=== PATIENT | female | born 1995 | race Caucasian/White ===

== ENCOUNTER 2019-01-15 13:14 | Emergency (ER) | payer BC ==
--- NOTE | 2019-01-15 13:50 | ERPHSYRPT ---
- History of Present Illness Time Seen by Provider: 01/15/19 13:30 Source: patient Exam Limitations: other Physician History: PATIENT WITH A HISTORY OF TYPE 1 DIABETES SINCE AGE 13 DEVELOPED ACUTE ONSET OF WEAKNESS, DROWSINESS AT WORK, HAD ACCUCHECK OF 50'S. DENIES HEADACHE, BLURRED VISION, SLURRED SPEECH, FOCAL NUMBNESS, WEAKNESS TINGLING IN EXTREMITIES. Timing/Duration: today Severity: severe Modifying Factors: Improves With: other (HAD A LIGHT BREAKFEAST TODAY) Associated Symptoms: denies symptoms - Review of Systems Constitutional: No Fever, No Chills Eyes: No Symptoms Ears, Nose, & Throat: No Symptoms Respiratory: No Symptoms, No Cough, No Dyspnea Cardiac: No Symptoms, No Chest Pain, No Edema, No Syncope Abdominal/Gastrointestinal: No Symptoms, No Abdominal Pain, No Nausea, No Vomiting, No Diarrhea Genitourinary Symptoms: No Symptoms, No Dysuria Musculoskeletal: No Symptoms, No Back Pain, No Neck Pain Skin: No Rash Neurological: Other (WEAKNESS, LETHARGY), No Dizziness, No Focal Weakness, No Sensory Changes Psychological: No Symptoms Endocrine: No Symptoms All Other Systems: Reviewed and Negative - Nursing Vital Signs Nursing Vital Signs: Initial Vital Signs Temperature 98 F 01/15/19 13:14 Pulse Rate 108 H 01/15/19 13:14 Respiratory Rate 16 01/15/19 13:14 Blood Pressure 165/110 01/15/19 13:14 O2 Sat by Pulse Oximetry 99 01/15/19 13:14 Pain Scale Pain Intensity 0 - Physical Exam General Appearance: no apparent distress, alert, other (AMBULATES INTO EMERGENCY ROOM NOMAL GAIT) Eye Exam: PERRL/EOMI, eyes nml inspection Ears, Nose, Throat Exam: normal ENT inspection, TMs normal, pharynx normal, moist mucous membranes Neck Exam: normal inspection, non-tender, supple, full range of motion Respiratory Exam: normal breath sounds, lungs clear, No respiratory distress Cardiovascular Exam: regular rate/rhythm, normal heart sounds, normal peripheral pulses Gastrointestinal/Abdomen Exam: soft, normal bowel sounds, No tenderness, No mass Back Exam: normal inspection, normal range of motion, No CVA tenderness, No vertebral tenderness Extremity Exam: normal inspection, normal range of motion, pelvis stable Neurologic Exam: alert, oriented x 3, cooperative, normal mood/affect, nml cerebellar function, nml station & gait, sensation nml, No motor deficits Skin Exam: normal color, warm, dry, No rash Lymphatic Exam: No adenopathy SpO2 Interpretation: normal SpO2: 100 O2 Delivery: Room Air Ordered Tests: Active Orders 24 hr Category Date Time Status BMP Stat Lab 01/15/19 13:56 Completed CBC W DIFF Stat Lab 01/15/19 13:56 Completed MAGNESIUM Stat Lab 01/15/19 13:56 Completed UA W/RFX UR CULTURE Stat Lab 01/15/19 14:30 Completed Lab/Rad Data: Laboratory Result Diagrams 01/15/19 13:56 01/15/19 13:56 Laboratory Results 01/15/19 01/15/19 01/15/19 Range/Units 14:30 13:56 13:56 WBC 11.0 H (4.0-10.5) K/mm3 RBC 4.25 (4.1-5.4) M/mm3 Hgb 12.9 (12.0-16.0) gm/dl Hct 38.0 (35-47) % MCV 89.4 (78-100) fl MCH 30.4 (26-32) pg MCHC 33.9 (32-36) g/dl RDW 13.0 (11.5-14.0) % Plt Count 251 (150-450) K/mm3 MPV 10.0 H (6-9.5) fl Gran % 70.2 H (36.0-66.0) % Eos # (Auto) 0.05 (0-0.5) Absolute Lymphs (auto) 2.39 (1.0-4.6) Absolute Monos (auto) 0.81 (0.0-1.3) Lymphocytes % 21.8 L (24.0-44.0) % Monocytes % 7.4 (0.0-12.0) % Eosinophils % 0.5 (0.00-5.0) % Basophils % 0.1 (0.0-0.4) % Absolute Granulocytes 7.72 H (1.4-6.9) Basophils # 0.01 (0-0.4) Sodium 137 (137-145) mmol/L Potassium 4.3 (3.5-5.1) mmol/L Chloride 103 (98-107) mmol/L Carbon Dioxide 21 L (22-30) mmol/L Anion Gap 17.0 H (5-15) MEQ/L BUN 7 (7-17) mg/dL Creatinine 0.46 L (0.52-1.04) mg/dL Estimated GFR > 60.0 ML/MIN Glucose 110 H (74-106) mg/dL Calcium 9.3 (8.4-10.2) mg/dL Magnesium 1.6 (1.6-2.3) mg/dL Urine Color YELLOW (YELLOW) Urine Appearance SLIGHTLY CLOUDY (CLEAR) Urine pH 7.0 (5-6) Ur Specific [place] 1.015 (1.005-1.025) Urine Protein NEGATIVE (Negative) Urine Ketones NEGATIVE (NEGATIVE) Urine Blood NEGATIVE (0-5) Adbulaziz/ul Urine Nitrite NEGATIVE (NEGATIVE) Urine Bilirubin NEGATIVE (NEGATIVE) Urine Urobilinogen NEGATIVE (0-1) mg/dL Ur Leukocyte Esterase NEGATIVE (NEGATIVE) Urine WBC (Auto) 0-2 (0-5) /HPF Urine RBC (Auto) NONE (0-2) /HPF U Epithel Cells (Auto) RARE (FEW) /HPF Urine Bacteria (Auto) RARE (NEGATIVE) /HPF Urine Mucus (Auto) SLIGHT (NEGATIVE) /HPF Urine Culture Reflexed NO (NO) Urine Glucose 50 (NEGATIVE) mg/dL - Progress Progress Note: 01/15/19 13:52, ACCUCHECK -66 PATIENT GIVEN FOOD TRAY, REPEAT ACCUCHECK 172 01/15/19 15:07 Counseled pt/family regarding: lab results, diagnosis, need for follow-up - Departure Departure Disposition: Home Clinical Impression: HYPOGLYCEMIA Condition: Stable Critical Care Time: No Additional Instructions: CONSULT YOUR PRIMARY CARE PROVIDER AND CERTIFIED CONTROL SYSTEMS TECHNICIAN FOR FOLLOWUP, CALL TODAY TO SCHEDULE APPOINTMENT. OBTAIN ACCUCHECK BEFORE MEALS AND AT BEDTIME.
[2019-01-15 13:59] LABS: BASOPHIL % 0.1 % (0.0-0.4); Basophil (Absolute #) 0.01 (0-0.4); Eosinophil % 0.5 % (0.00-5.0); Eosinophil (Absolute #) 0.05 (0-0.5); Granulocyte Absolute (ANC) 7.72 (1.4-6.9); Granulocytes % 70.2 % (36.0-66.0); Hemoglobin 12.9 gm/dl (12.0-16.0); Lymphocyte (Absolute #) 2.39 (1.0-4.6); Lymphocytes % 21.8 % (24.0-44.0); Mean Cell Volume 89.4 fl (78-100); Mean Corpuscular Hemoglobin 30.4 pg (26-32); Mean Corpuscular Hgb Concent. 33.9 g/dl (32-36); Monocyte (Absolute #) 0.81 (0.0-1.3); Monocytes % 7.4 % (0.0-12.0); Platelet Count 251 K/mm3 (150-450); Red Blood Count 4.25 M/mm3 (4.1-5.4)
[2019-01-15 14:27] LABS: BLOOD UREA NITROGEN 7 mg/dL (7-17); CHLORIDE 103 mmol/L (98-107); Calcium 9.3 mg/dL (8.4-10.2); Carbon Dioxide 21 mmol/L (22-30); Creatinine 1 0.46 mg/dL (0.52-1.04); Glucose 110 mg/dL (74-106); MAGNESIUM 1.6 mg/dL (1.6-2.3); Potassium 4.3 mmol/L (3.5-5.1); SODIUM 137 mmol/L (137-145)
[2019-01-15 14:31] LABS: Appearance SLIGHTLY CLOUDY (CLEAR); Bacteria RARE /HPF (NEGATIVE); Bilirubin NEGATIVE (NEGATIVE); Blood NEGATIVE Ery/ul (0-5); Epithelial Cells RARE /HPF (FEW); Glucose 50 mg/dL (NEGATIVE); Ketones NEGATIVE (NEGATIVE); Leukocyte Esterase NEGATIVE (NEGATIVE); Mucus SLIGHT /HPF (NEGATIVE); Nitrite NEGATIVE (NEGATIVE); Protein,Urine Dip NEGATIVE (Negative); Specific Gravity 1.015 (1.005-1.025); Urobilinogen NEGATIVE mg/dL (0-1); WBC 0-2 /HPF (0-5)
[2019-01-15 15:27] VITALS: BP 144/93; PULSE 103; O2SAT 96
== END 2019-01-15 15:29 | disposition home or self-care (01) ==
LOC: ED 13:14
DX: E10.649 Type 1 diabetes mellitus with hypoglycemia without coma (principal)
CPT/HCPCS: 36415; 80048; 81001; 82962; 83735; 85025; 99283

== ENCOUNTER 2019-05-18 22:25 | Emergency (ER) | payer BC | END 2019-05-19 01:02 | disposition home or self-care (01) | LOC: ED 05-19 01:02 ==

== ENCOUNTER 2021-04-22 20:35 | Emergency (ER) | payer BC ==
[2021-04-22] MEDS ORDERED: Sodium Chloride 0.9% 1000 ML 1,000 ML IV STA (21:10)
[2021-04-22 21:18] LABS: BASOPHIL % 0.2 % (0.0-0.4); Basophil (Absolute #) 0.02 (0-0.4); Eosinophil % 1.4 % (0.00-5.0); Eosinophil (Absolute #) 0.14 (0-0.5); Hematocrit 40.6 % (35-47); Hemoglobin 13.7 gm/dl (12.0-16.0); Lymphocyte (Absolute #) 4.28 (1.0-4.6); Lymphocytes % 43.5 % (24.0-44.0); Mean Cell Volume 88.1 fl (78-100); Mean Corpuscular Hemoglobin 29.7 pg (26-32); Mean Corpuscular Hgb Concent. 33.7 g/dl (32-36); Mean Platelet Volume 10.3 fl (7.5-11.0); Monocyte (Absolute #) 0.79 (0.0-1.3); Neutrophil % 46.9 % (36.0-66.0); Platelet Count 331 K/mm3 (150-450); Red Blood Count 4.61 M/mm3 (4.1-5.4); Red Cell Distribution Width 12.8 % (11.5-14.0); White Blood Count 9.8 K/mm3 (4.0-10.5)
[2021-04-22] MEDS ORDERED: Sodium Chloride 0.9% 1000 ML 1,000 ML ONE (21:19)
[2021-04-22 21:28] LABS: ALBUMIN 4.6 g/dL (3.5-5.0); ALKALINE PHOSPHATASE 74 U/L (38-126); ANION GAP 16.9 MEQ/L (5-15); BLOOD UREA NITROGEN 12 mg/dL (7-17); CHLORIDE 100 mmol/L (98-107); Calcium 9.4 mg/dL (8.4-10.2); Carbon Dioxide 25 mmol/L (22-30); Creatinine 1 0.63 mg/dL (0.52-1.04); EST GLOMERULAR FILTRATION RATE > 60.0 ML/MIN; Glucose 90 mg/dL (74-106); MAGNESIUM 1.7 mg/dL (1.6-2.3); Potassium 3.5 mmol/L (3.5-5.1); SGOT/AST 17 U/L (14-36); SGPT/ALT 9 U/L (0-35); SODIUM 138 mmol/L (137-145); Total Protein 7.9 g/dL (6.3-8.2)
[2021-04-22 21:32] LABS: Appearance CLEAR (CLEAR); Bacteria RARE /HPF (NEGATIVE); Bilirubin NEGATIVE (NEGATIVE); Epithelial Cells RARE /HPF (FEW); Glucose NEGATIVE (NEGATIVE); Ketones NEGATIVE (NEGATIVE); Nitrite NEGATIVE (NEGATIVE); Protein,Urine Dip NEGATIVE (Negative); RBC 0-2 /HPF (0-2); Specific Gravity 1.004 (1.005-1.025); Urobilinogen NEGATIVE mg/dL (0-1)
[2021-04-22 21:38] LABS: Amphetamine,Urine NEGATIVE (NEGATIVE); Barbiturate,Urine NEGATIVE (NEGATIVE); Benzodiazepine,Urine NEGATIVE (NEGATIVE); Cocaine,Urine NEGATIVE (NEGATIVE); Methadone,Urine NEGATIVE (NEGATIVE); Opiate,Urine NEGATIVE (NEGATIVE); PCP,Urine NEGATIVE (NEGATIVE); THC,Urine NEGATIVE (NEGATIVE)
[2021-04-22 21:39] LABS: Leukocyte Esterase SMALL (NEGATIVE)
--- NOTE | 2021-04-22 21:45 | ERPHSYRPT ---
- History of Present Illness Time Seen by Provider: 04/22/21 21:42 Source: patient Exam Limitations: no limitations Patient Subjective Stated Complaint: "I started having vision problems in my left eye then my arm started going numb." Triage Nursing Assessment: Patient reported acute onset of left sided visual disturbances and LUE numbness. She reported having simliar events in the past while she was . Reported + history of migraines, diabetes, and gestational hypertension. Denied any injuries. Reported intermittent dizziness. Denied nausea/vomiting/diarrhea. Denied any difficulty with fine/gross motor movement. She described the vision changes as "squigglies" and blurred vision to the left half of her vision. Pupils 3mm brisk direct/consensual reaciton. EOMs intact. Neck supple non-tender without lymphadenopathy. Carotids without bruits/thrills. Symmetrical chest expansion. Heart tones S1/S2 RRR. Lung sound vesicular with adequate airflow throughout all martínez. No noted pronator drift. Peripheral pulses +3 bilateral. Strenght 5/5 in the RUE, LUE, LLE. 4/5 in the RLE. Physician History: "I started having vision problems in my left eye then my arm started going numb." Patient reported acute onset of left sided visual disturbances and LUE numbness. She reported having simliar events in the past while she was . Reported + history of migraines, diabetes, and gestational hypertension. Denied any injuries. Reported intermittent dizziness. Denied nausea/vomiting/diarrhea. Denied any difficulty with fine/gross motor movement. She described the vision changes as "squigglies" and blurred vision to the left half of her vision. Time of Onset/Last Time Seen Normal: 30-40 minutes ago Timing/Duration: today Severity: mild Character of Deficits: new weakness, altered sensation Deficits: no difficulties Baseline/Normal Cognition: alert oriented x 3 Current Cognition: alert oriented x 3 Associated Symptoms: paresthesia, headache Allergies/Adverse Reactions: No Known Drug Allergies Allergy (Verified 04/22/21 21:17) Home Medications: Insulin Aspart [NovoLOG Insulin] 0 unit SQ ACHS 05/18/19 [History] Insulin Detemir [Levemir] 9 unit SQ HS 05/18/19 [History] Hx Tetanus, Diphtheria Vaccination/Date Given: Yes Hx Influenza Vaccination/Date Given: Yes Hx Pneumococcal Vaccination/Date Given: No Travel Risk - International Travel Have you traveled outside of the country in past 3 weeks: No - Coronavirus Screening Are you exhibiting any of the following symptoms?: No Close contact with a COVID-19 positive Pt in past 14-21 Days: No - Vaccine Status Have you recieved a Covid-19 vaccination: No - Review of Systems Constitutional: No Fever, No Chills Eyes: No Symptoms Ears, Nose, & Throat: No Symptoms Respiratory: No Cough, No Dyspnea Cardiac: No Chest Pain, No Edema, No Syncope Abdominal/Gastrointestinal: No Abdominal Pain, No Nausea, No Vomiting, No Diarrhea Genitourinary Symptoms: No Dysuria Musculoskeletal: No Back Pain, No Neck Pain Skin: No Rash Neurological: Parasthesia, Sensory Changes, No Dizziness, No Focal Weakness Psychological: No Symptoms Endocrine: No Symptoms All Other Systems: Reviewed and Negative - Past Medical History Pertinent Past Medical History: Yes Neurological History: Migraines Endocrine Medical History: Diabetes Type I, Hypoglycemia GI Medical History: Crohns Disease Other Medical History: 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 htn with - Past Surgical History Past Surgical History: Yes Gastrointestinal: Hernia Repair Female Surgical History: Section - Social History Smoking Status: Never smoker Exposure to second hand smoke: Yes Drug Use: none Patient Lives Alone: No - Female History Hx Last Menstrual Period: 04/06/21 Hx Now: No - Nursing Vital Signs Nursing Vital Signs: Initial Vital Signs Pulse Rate 88 04/22/21 20:35 Respiratory Rate 18 04/22/21 20:35 Blood Pressure 188/119 04/22/21 20:35 O2 Sat by Pulse Oximetry 100 04/22/21 20:35 Pain Scale Pain Intensity 0 - [place] Coma Scale Best Eye Response ([place]): (4) open spontaneously Best Verbal Response ([place]): (5) oriented Best Motor Response ([place]): (6) obeys commands [place] Total: 15 - Physical Exam General Appearance: no apparent distress, alert Eye Exam: bilateral eye: PERRL, EOMI Ears, Nose, Throat Exam: normal ENT inspection, moist mucous membranes Neck Exam: normal inspection, non-tender, supple Respiratory: normal breath sounds, lungs clear, airway intact, No respiratory distress Cardiovascular: regular rate/rhythm, No edema Gastrointestinal: soft, No tenderness, No distention Back Exam: normal inspection Extremity Exam: normal inspection, No pedal edema Mental Status: 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 Incidental left maxillary sinus polyp/retention) Ordered Tests: Active Orders 24 hr Category Date Time Status Clean Catch Urine Specimen STAT Care 04/22/21 21:10 Active EKG-ER Only STAT Care 04/22/21 21:10 Active IV Insertion STAT Care 04/22/21 21:18 Active POCT Glucose Check STAT Care 04/22/21 21:10 Active HEAD WITHOUT CONTRAST [CT] Stat Exams 04/22/21 21:11 Completed CBC W DIFF Stat Lab 04/22/21 21:04 Completed CMP Stat Lab 04/22/21 21:04 Completed HCG,QUALITATIVE URINE Stat Lab 04/22/21 21:04 Completed MAGNESIUM Stat Lab 04/22/21 21:04 Completed POCT GLUCOSE Stat Lab 04/22/21 21:17 Completed TROPONIN Q3H Lab 04/22/21 21:04 Completed TROPONIN Q3H Lab 04/23/21 00:15 Ordered TROPONIN Q3H Lab 04/23/21 03:15 Ordered TROPONIN Q3H Lab 04/23/21 06:15 Ordered TROPONIN Q3H Lab 04/23/21 09:15 Ordered UA W/RFX UR CULTURE Stat Lab 04/22/21 21:04 Completed Urine Triage Profile Stat Lab 04/22/21 21:04 Completed Medication Summary Generic Name Dose Route Start Last Admin Trade Name Freq PRN Reason Stop Dose Admin Enalaprilat 1.25 mg 04/22/21 22:36 Vasotec I.V. 2.5 Mg IV 04/22/21 22:37 STAT ONE Discontinued Medications Generic Name Dose Route Start Last Admin Trade Name Freq PRN Reason Stop Dose Admin Sodium Chloride 1,000 mls @ 999 mls/hr 04/22/21 21:10 04/22/21 21:21 Sodium Chloride 0.9% 1000 Ml IV 04/22/21 22:10 999 mls/hr .Q1H1M STA Administration Sodium Chloride Confirm 04/22/21 21:19 Sodium Chloride 0.9% 1000 Ml Administered 04/22/21 21:20 Dose 1,000 mls @ ud .ROUTE .STK-MED ONE Labetalol HCl 10 mg 04/22/21 22:11 04/22/21 22:18 Trandate 20 Mg/4 Ml Syringe IV 04/22/21 22:12 10 mg STAT ONE Administration Labetalol HCl Confirm 04/22/21 22:16 Trandate 20 Mg/4 Ml Syringe Administered 04/22/21 22:17 Dose 20 mg IV .STK-MED ONE Metoclopramide HCl 10 mg 04/22/21 22:12 04/22/21 22:18 Reglan 10 Mg/2 Ml IV 04/22/21 22:13 10 mg STAT ONE Administration Metoclopramide HCl Confirm 04/22/21 22:16 Reglan 10 Mg/2 Ml Administered 04/22/21 22:17 Dose 10 mg .ROUTE .STK-MED ONE Lab/Rad Data: Laboratory Result Diagrams 04/22/21 21:04 04/22/21 21:04 Laboratory Results 04/22/21 04/22/21 04/22/21 Range/Units 21:17 21:04 21:04 WBC (4.0-10.5) K/mm3 RBC (4.1-5.4) M/mm3 Hgb (12.0-16.0) gm/dl Hct (35-47) % MCV (78-100) fl MCH (26-32) pg MCHC (32-36) g/dl RDW (11.5-14.0) % Plt Count (150-450) K/mm3 MPV (7.5-11.0) fl Gran % (36.0-66.0) % Eos # (Auto) (0-0.5) Absolute Lymphs (auto) (1.0-4.6) Absolute Monos (auto) (0.0-1.3) Lymphocytes % (24.0-44.0) % Monocytes % (0.0-12.0) % Eosinophils % (0.00-5.0) % Basophils % (0.0-0.4) % Absolute Granulocytes (1.4-6.9) Basophils # (0-0.4) Sodium 138 (137-145) mmol/L Potassium 3.5 (3.5-5.1) mmol/L Chloride 100 (98-107) mmol/L Carbon Dioxide 25 (22-30) mmol/L Anion Gap 16.9 H (5-15) MEQ/L BUN 12 (7-17) mg/dL Creatinine 0.63 (0.52-1.04) mg/dL Estimated GFR > 60.0 ML/MIN Glucose 90 (74-106) mg/dL POC Glucometer 85 (74 to 106) mg/dL Calcium 9.4 (8.4-10.2) mg/dL Magnesium 1.7 (1.6-2.3) mg/dL Total Bilirubin 0.20 (0.2-1.3) mg/dL AST 17 (14-36) U/L ALT 9 (0-35) U/L Alkaline Phosphatase 74 (38-126) U/L Troponin I < 0.012 (0.000-0.034) ng/mL Serum Total Protein 7.9 (6.3-8.2) g/dL Albumin 4.6 (3.5-5.0) g/dL Urine Color (YELLOW) Urine Appearance (CLEAR) Urine pH (5-6) Ur Specific [place] (1.005-1.025) Urine Protein (Negative) Urine Ketones (NEGATIVE) Urine Blood (0-5) Abdulaziz/ul Urine Nitrite (NEGATIVE) Urine Bilirubin (NEGATIVE) Urine Urobilinogen (0-1) mg/dL Ur Leukocyte Esterase (NEGATIVE) Urine WBC (Auto) (0-5) /HPF Urine RBC (Auto) (0-2) /HPF U Epithel Cells (Auto) (FEW) /HPF Urine Bacteria (Auto) (NEGATIVE) /HPF Urine Culture Reflexed (NO) Urine Glucose (NEGATIVE) mg/dL Urine HCG, Qual (Negative) Urine Opiates Level (NEGATIVE) Ur Methadone (NEGATIVE) Urine Barbiturates (NEGATIVE) Ur Phencyclidine (PCP) (NEGATIVE) Urine Amphetamine (NEGATIVE) U Benzodiazepine Level (NEGATIVE) Urine Cocaine (NEGATIVE) Urine Marijuana (THC) (NEGATIVE) 04/22/21 04/22/21 04/22/21 Range/Units 21:04 21:04 21:04 WBC 9.8 (4.0-10.5) K/mm3 RBC 4.61 (4.1-5.4) M/mm3 Hgb 13.7 (12.0-16.0) gm/dl Hct 40.6 (35-47) % MCV 88.1 (78-100) fl MCH 29.7 (26-32) pg MCHC 33.7 (32-36) g/dl RDW 12.8 (11.5-14.0) % Plt Count 331 (150-450) K/mm3 MPV 10.3 (7.5-11.0) fl Gran % 46.9 (36.0-66.0) % Eos # (Auto) 0.14 (0-0.5) Absolute Lymphs (auto) 4.28 (1.0-4.6) Absolute Monos (auto) 0.79 (0.0-1.3) Lymphocytes % 43.5 (24.0-44.0) % Monocytes % 8.0 (0.0-12.0) % Eosinophils % 1.4 (0.00-5.0) % Basophils % 0.2 (0.0-0.4) % Absolute Granulocytes 4.60 (1.4-6.9) Basophils # 0.02 (0-0.4) Sodium (137-145) mmol/L Potassium (3.5-5.1) mmol/L Chloride (98-107) mmol/L Carbon Dioxide (22-30) mmol/L Anion Gap (5-15) MEQ/L BUN (7-17) mg/dL Creatinine (0.52-1.04) mg/dL Estimated GFR ML/MIN Glucose (74-106) mg/dL POC Glucometer (74 to 106) mg/dL Calcium (8.4-10.2) mg/dL Magnesium (1.6-2.3) mg/dL Total Bilirubin (0.2-1.3) mg/dL AST (14-36) U/L ALT (0-35) U/L Alkaline Phosphatase (38-126) U/L Troponin I (0.000-0.034) ng/mL Serum Total Protein (6.3-8.2) g/dL Albumin (3.5-5.0) g/dL Urine Color (YELLOW) Urine Appearance (CLEAR) Urine pH (5-6) Ur Specific [place] (1.005-1.025) Urine Protein (Negative) Urine Ketones (NEGATIVE) Urine Blood (0-5) Abdulaziz/ul Urine Nitrite (NEGATIVE) Urine Bilirubin (NEGATIVE) Urine Urobilinogen (0-1) mg/dL Ur Leukocyte Esterase (NEGATIVE) Urine WBC (Auto) (0-5) /HPF Urine RBC (Auto) (0-2) /HPF U Epithel Cells (Auto) (FEW) /HPF Urine Bacteria (Auto) (NEGATIVE) /HPF Urine Culture Reflexed (NO) Urine Glucose (NEGATIVE) mg/dL Urine HCG, Qual NEGATIVE (Negative) Urine Opiates Level NEGATIVE (NEGATIVE) Ur Methadone NEGATIVE (NEGATIVE) Urine Barbiturates NEGATIVE (NEGATIVE) Ur Phencyclidine (PCP) NEGATIVE (NEGATIVE) Urine Amphetamine NEGATIVE (NEGATIVE) U Benzodiazepine Level NEGATIVE (NEGATIVE) Urine Cocaine NEGATIVE (NEGATIVE) Urine Marijuana (THC) NEGATIVE (NEGATIVE) 04/22/21 Range/Units 21:04 WBC (4.0-10.5) K/mm3 RBC (4.1-5.4) M/mm3 Hgb (12.0-16.0) gm/dl Hct (35-47) % MCV (78-100) fl MCH (26-32) pg MCHC (32-36) g/dl RDW (11.5-14.0) % Plt Count (150-450) K/mm3 MPV (7.5-11.0) fl Gran % (36.0-66.0) % Eos # (Auto) (0-0.5) Absolute Lymphs (auto) (1.0-4.6) Absolute Monos (auto) (0.0-1.3) Lymphocytes % (24.0-44.0) % Monocytes % (0.0-12.0) % Eosinophils % (0.00-5.0) % Basophils % (0.0-0.4) % Absolute Granulocytes (1.4-6.9) Basophils # (0-0.4) Sodium (137-145) mmol/L Potassium (3.5-5.1) mmol/L Chloride (98-107) mmol/L Carbon Dioxide (22-30) mmol/L Anion Gap (5-15) MEQ/L BUN (7-17) mg/dL Creatinine (0.52-1.04) mg/dL Estimated GFR ML/MIN Glucose (74-106) mg/dL POC Glucometer (74 to 106) mg/dL Calcium (8.4-10.2) mg/dL Magnesium (1.6-2.3) mg/dL Total Bilirubin (0.2-1.3) mg/dL AST (14-36) U/L ALT (0-35) U/L Alkaline Phosphatase (38-126) U/L Troponin I (0.000-0.034) ng/mL Serum Total Protein (6.3-8.2) g/dL Albumin (3.5-5.0) g/dL Urine Color STRAW (YELLOW) Urine Appearance CLEAR (CLEAR) Urine pH 7.0 (5-6) Ur Specific [place] 1.004 (1.005-1.025) Urine Protein NEGATIVE (Negative) Urine Ketones NEGATIVE (NEGATIVE) Urine Blood NONE (0-5) Abdulaziz/ul Urine Nitrite NEGATIVE (NEGATIVE) Urine Bilirubin NEGATIVE (NEGATIVE) Urine Urobilinogen NEGATIVE (0-1) mg/dL Ur Leukocyte Esterase SMALL (NEGATIVE) Urine WBC (Auto) 6-10 (0-5) /HPF Urine RBC (Auto) 0-2 (0-2) /HPF U Epithel Cells (Auto) RARE (FEW) /HPF Urine Bacteria (Auto) RARE (NEGATIVE) /HPF Urine Culture Reflexed NO (NO) Urine Glucose NEGATIVE (NEGATIVE) mg/dL Urine HCG, Qual (Negative) Urine Opiates Level (NEGATIVE) Ur Methadone (NEGATIVE) Urine Barbiturates (NEGATIVE) Ur Phencyclidine (PCP) (NEGATIVE) Urine Amphetamine (NEGATIVE) U Benzodiazepine Level (NEGATIVE) Urine Cocaine (NEGATIVE) Urine Marijuana (THC) (NEGATIVE) - Progress Progress: improved Counseled pt/family regarding: lab results, diagnosis, need for follow-up, rad results - Departure Departure Disposition: Home Clinical Impression: Ocular migraine Type 1 diabetes mellitus Qualifiers: Diabetes mellitus complication status: with circulatory complication Diabetes mellitus complication detail: with other circulatory complications Qualified Code(s): E10.59 - Type 1 diabetes mellitus with other circulatory complications Condition: Stable Critical Care Time: Yes Critical Care Time(excluding separately billable procedures): Critical 30-74 mins Referrals: DOCTOR,NO FAMILY [Primary Care Provider] - ESTRELLA MACEDO DO [ACTIVE STAFF] - Follow Up with PCP/3 days Instructions: Migraines (DC), High Blood Pressure (DC), Controlling Your Blood Pressure Through Lifestyle, Medicines for High Blood Pressure Additional Instructions: SUSAN WYMAN was seen on 04/22/21 n the Emergency Room. At that time you were treated for an emergent condition, during your visit Laboratory, Radiology and/or other procedures may have been ordered. It is very important that you follow-up with your Primary Care Physician NO FAMILY DOCTOR within the next 24- 48 hours to review your Emergency Room visit and the final results of testing that was ordered. Some test results such as Urine Cultures, Blood Cultures, and other cultures if ordered will not be finalized for 24-48 hours. If you do not have a Primary Care Provider please call the medical records department at [phone] to obtain a copy of your results or you may sign into our patient portal to obtain these results by visiting us @ [email or web address] and completing the following steps: 1. Click on the Patient Portal link 2. Click the Patient Self Enrollment Link to complete the enrollment form and entering your 3. Once the enrollment form is completed you will receive an email with a temporary ID and password at the email address you provided. 4. Next choose a user name and password. Your user name must be at least 4 characters long and your password must be at least 4 characters long. 5. Choose a security question from the list and provide your answer to the question. If you already have signed into the Health Portal you may access your Health Care Information 16/04 by the following steps: 1. Login to our website @ [email or web address] 2. Enter your original user name and password. FAQS The [facility] Health Portal is an online tool that contains your Lab Results, Radiology Reports, Visit History, Discharge Instructions and Health Summary Lab and Radiology Results will not be available for 72 hours on the portal. The Portal is a secure site, passwords are encryted and URLs are re-written so they cannot be copied and pasted. You and authorized family members are the only ones who can access your Portal. Also there is a timeout feature that protects your information if you leave the Portal page open. If you have technical difficulty please use the Contact Us link on the page this will allow you to submit any questions you have regarding the Portal or you may contact the Medical Record Department at [phone]. Discharge/Care Plan SUSAN WYMAN was seen on 04/22/21 in the Emergency Room. The patient was counseled regarding Diagnosis,Lab results, Imaging studies, need for follow up and when to return to the Emergency Room. Prescriptions given: Discharge Note I have spoken with the patient and/or caregivers. I have explained the patient's condition, diagnosis and treatment plan based on the information available to me at this time. I have answered the patient's and/or caregiver's questions and addressed any concerns. The patient and/or caregivers have as good understanding of the patient's diagnosis, condition and treatment plan as can be expected at this point. The vital signs have been stable. The patient's condition is stable and appropriate for discharge from the emergency department. The patient will pursue further outpatient evaluation with the primary care physician or other designated or consulting physician as outlined in the discharge instructions. The patient and/or caregivers are agreeable to this plan of care and follow-up instructions have been explained in detail. The patient and/or caregivers have received these instruction. The patient/and or caregivers are aware that any significant change in condition or worsening of symptoms should prompt an immediate return to this or the closest emergency department or call 911. Prescriptions: Lisinopril/Hydrochlorothiazide [Lisinopril-Hctz 10-12.5 mg Tab] 1 each PO QAM 30 Days #30 tablet
--- NOTE | 2021-04-22 22:03 | XRAY ---
Indication: Left blurred vision and left upper extremity numbness. Multiple contiguous axial images obtained through head without contrast. Comparison: None Normal appearing brain parenchyma, ventricles, and bony calvarium. Partially visualized 1 cm left maxillary sinus polyp/retention cyst. Remaining visualized paranasal sinuses and mastoid air cells are clear. Impression: Normal CT head without contrast exam. Incidental left maxillary sinus polyp/retention cyst.
[2021-04-22] MEDS ORDERED: TRANDATE 20 MG/4 ML SYRINGE IV ONE ×2 (22:11→22:16)
[2021-04-22] MEDS ORDERED: Reglan 10 MG/2 ML IV ONE (22:12)
[2021-04-22] MEDS ORDERED: Reglan 10 MG/2 ML ONE (22:16)
[2021-04-22] MEDS ORDERED: VASOTEC I.V. 2.5 MG IV ONE ×2 (22:36→22:44)
[2021-04-22 23:09] VITALS: BP 137/93; PULSE 76; O2SAT 98
== END 2021-04-22 23:06 | disposition home or self-care (01) ==
LOC: ED 20:35
DX: G43.809 Other migraine, not intractable, without status migrainosus (principal)
CPT/HCPCS: 36000; 36415; 70450; 80053; 80307; 81001; 82947; 83735; 84484; 84703; 85025; 93005; 96374; 96375; 99284; 99291

== ENCOUNTER 2021-05-04 16:30 | Emergency (ER) | payer BC ==
[2021-05-04] MEDS ORDERED: NORVASC 5 MG ONE (17:20)
[2021-05-04] MEDS: NORVASC 5 MG PO ONE (17:21)
--- NOTE | 2021-05-04 17:55 | ERPHSYRPT ---
- History of Present Illness Time Seen by Provider: 05/04/21 17:00 Source: patient Exam Limitations: no limitations Patient Subjective Stated Complaint: Pt states that she began having "floatys" in her right eye today and then around [id number] her right arm went numb and her lips and tongue, pt also complains of a headache, pt states this happened a couple of weeks ago to her and she came to the ER and they found her blood pressure was elevated, they placed her on lisinopril and she got really sick from it, pt had labetolol from when she was and so she started taking one in the morning and one in the evening, pt states that when she was she had "hemplegic migraines" and it caused her left side to go numb and her blood pressure was elevated and that's when they placed her on the labetolol and discontinued after delivery Triage Nursing Assessment: Pt was brought to the ER by her sister, hypertensive, rates head pain as 5/10, no droop noticed, no defecits noticed, skin n/w/d, no slurred speech noted, doesn't appear to be in any distress Physician History: Patient is a 25-year-old female who presents to the ER with a complaint of headache which she rates 5 of 10 floaters in her eyes earlier today and then about 330 in the onset of numbness of the left arm lips tongue and face. She had a similar episode 2 weeks ago when she was seen in the ER her CT scan was negative her blood pressure was elevated when it was brought under control she had relief of her symptoms. Today symptoms are exactly the same as 2 weeks ago during that visit she had a medical work-up including a CT scan which was normal. She also had similar episodes to this when she had hypertension during her last . She was given lisinopril her last visit to the ER but that was stopped because it seemed to make her sick. She started 200 mg of labetalol twice a day which was left over from her . Timing/Duration: today, intermittent Head Pain Location: global Severity of Pain-Max: moderate Severity of Pain-Current: moderate Recent Head Trauma: no recent headache/trauma, occasional headaches Modifying Factors: Improves With: medication Associated Symptoms: visual disturbance Previous symptoms: same symptoms as today Allergies/Adverse Reactions: No Known Drug Allergies Allergy (Verified 05/04/21 17:06) Home Medications: Insulin Aspart [NovoLOG Insulin] 0 unit SQ ACHS 05/18/19 [History] Insulin Detemir [Levemir] 9 unit SQ HS 05/18/19 [History] Hx Tetanus, Diphtheria Vaccination/Date Given: Yes Hx Influenza Vaccination/Date Given: Yes Hx Pneumococcal Vaccination/Date Given: No Travel Risk - International Travel Have you traveled outside of the country in past 3 weeks: No - Coronavirus Screening Are you exhibiting any of the following symptoms?: No Close contact with a COVID-19 positive Pt in past 14-21 Days: No - Vaccine Status Have you recieved a Covid-19 vaccination: No - Review of Systems Constitutional: No Fever, No Chills Eyes: No Symptoms Ears, Nose, & Throat: No Symptoms Respiratory: No Cough, No Dyspnea Cardiac: No Chest Pain, No Edema, No Syncope Abdominal/Gastrointestinal: No Abdominal Pain, No Nausea, No Vomiting, No Diarrhea Genitourinary Symptoms: No Dysuria Musculoskeletal: No Back Pain, No Neck Pain Skin: No Rash Neurological: Headache, Parasthesia, No Dizziness, No Focal Weakness, No Sensory Changes Psychological: No Symptoms Endocrine: No Symptoms All Other Systems: Reviewed and Negative - Past Medical History Pertinent Past Medical History: Yes Neurological History: Migraines Cardiac History: Hypertension Endocrine Medical History: Diabetes Type I, Hypoglycemia GI Medical History: Crohns Disease Other Medical History: 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 htn with - Past Surgical History Past Surgical History: Yes Gastrointestinal: Hernia Repair Female Surgical History: Section - Social History Smoking Status: Never smoker Exposure to second hand smoke: No Drug Use: none Patient Lives Alone: No - Female History Hx Last Menstrual Period: now Hx Now: No - Nursing Vital Signs Nursing Vital Signs: Initial Vital Signs Temperature 97.8 F 05/04/21 16:54 Pulse Rate 93 H 05/04/21 16:54 Blood Pressure 176/115 05/04/21 16:54 O2 Sat by Pulse Oximetry 100 05/04/21 16:54 Pain Scale Pain Intensity 7 - Physical Exam General Appearance: mild distress Eye Exam: PERRL/EOMI Ears, Nose, Throat Exam: normal ENT inspection, moist mucous membranes Neck Exam: normal inspection, supple, full range of motion, No meningismus Respiratory Exam: normal breath sounds, lungs clear Cardiovascular Exam: regular rate/rhythm, normal heart sounds Gastrointestinal/Abdominal Exam: soft, No tenderness, No distention Back Exam: normal inspection, normal range of motion Extremity Exam: normal inspection, normal range of motion Mental Status Exam: alert, oriented x 3, 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 Exam: normal speech, PERRL, No facial droop Coordination/Gait Exam: normal cerebellar function Motor/Sensory Exam: no motor deficit, no sensory deficit Skin Exam: normal color, warm, dry, No rash SpO2: 100 - Course Nursing assessment & vital signs reviewed: Yes Ordered Tests: Medication Summary Discontinued Medications Generic Name Dose Route Start Last Admin Trade Name Lalo PRN Reason Stop Dose Admin Hydrocodone Bitart/Acetaminophen 1 tab 05/04/21 18:17 05/04/21 18:32 [place] 5/325 Mg PO 05/04/21 18:18 1 tab STAT ONE Administration Hydrocodone Bitart/Acetaminophen Confirm 05/04/21 18:31 [place] 5/325 Mg Administered 05/04/21 18:32 Dose 1 tab .ROUTE .STK-MED ONE Amlodipine Besylate 5 mg 05/04/21 17:16 05/04/21 17:21 Norvasc 5 Mg PO 05/04/21 17:17 5 mg STAT ONE Administration Amlodipine Besylate Confirm 05/04/21 17:20 Norvasc 5 Mg Administered 05/04/21 17:21 Dose 5 mg .ROUTE .STK-MED ONE - Progress Progress: improved Air Movement: good Blood Culture(s) Obtained: No Antibiotics given: No - Departure Departure Disposition: Home Clinical Impression: Ocular migraine Condition: Stable Critical Care Time: No Referrals: DOCTOR,NO FAMILY [Primary Care Provider] - Instructions: Paresthesias (DC) Prescriptions: Amlodipine Besylate 5 mg [Norvasc 5 mg] 5 mg PO DAILY 30 Days #30 tablet
[2021-05-04] MEDS ORDERED: NORCO 5/325 MG ONE (18:31)
[2021-05-04] MEDS: NORCO 5/325 MG PO ONE (18:32)
[2021-05-04 18:44] VITALS: O2SAT 100
[2021-05-04 18:45] VITALS: BP 139/85; PULSE 80
== END 2021-05-04 18:49 | disposition home or self-care (01) ==
LOC: ED 16:30
DX: G43.109 Migraine with aura, not intractable, without status migrainosus (principal)
CPT/HCPCS: 99283; A9270-GY

== ENCOUNTER 2021-05-07 13:33 | Emergency (ER) | payer BC ==
[2021-05-07] MEDS ORDERED: BABY ASPIRIN 81 MG CHEW PO ONE (13:54)
[2021-05-07] MEDS ORDERED: DUONEB 0.5-3 MG/3 ml Neb IH ONE ×2 (13:55→15:37)
--- NOTE | 2021-05-07 13:59 | ERPHSYRPT ---
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 started with SHOOK and chest began to feel tight after Triage Nursing Assessment: pt to ED c/o CP x 30 min while eating. SHOOK began and pt took imatrex, chest tightness began shortly after. imatrex did relieve SHOOK. denes pain now, states "its just more tight." does not radiate. heart sounds clear. hx anxiety Physician History: 25 years old female with history of hypertension, anxiety, migraines, started on metoprolol and Zoloft 2 days ago presented in the ER with substernal chest pain sudden onset while she was eating lunch almost 30 minutes prior to arrival, continuous followed by a headache and took Imitrex which was the first time ever she took. It did relieve her headache but started to feel some tightness in the chest and tingly sensation although were and weird feeling. Her chest pain is improved but now has some tightness in the chest without any significant aggravating or relieving factors. Denies any associated palpitations or shortness of breath. No fever chills or cough reported. No history of chest pain in the past. Denies any sick contact. Timing/Duration: hour(s) (0.5), constant, resolved prior to arrival, sudden, improved Activities at Onset: other Quality: dullness Location: substernal Chest Pain Radiation: no radiation Severity of Pain-Max: moderate Modifying Factors: Improves With: nothing Associated Symptoms: headache Prior Chest Pain/Cardiac Workup: no prior cardiac workup Nitro Today/Relief: no nitro taken today Aspirin Treatment Today: no aspirin today Allergies/Adverse Reactions: No Known Drug Allergies Allergy (Verified 05/07/21 13:44) Home Medications: Insulin Aspart [NovoLOG Insulin] 0 unit SQ ACHS 05/18/19 [History] Insulin Detemir [Levemir] 9 unit SQ HS 05/18/19 [History] Metoprolol Succinate 50 mg [Toprol Xl 50 MG] 50 mg PO DAILY 05/07/21 [History] Sertraline HCl 50 mg [Zoloft 50 mg Tablet] 50 mg PO DAILY 05/07/21 [History] Hx Tetanus, Diphtheria Vaccination/Date Given: Yes Hx Influenza Vaccination/Date Given: Yes Hx Pneumococcal Vaccination/Date Given: No Immunizations Up to Date: Yes Travel Risk - International Travel Have you traveled outside of the country in past 3 weeks: No - Coronavirus Screening Are you exhibiting any of the following symptoms?: No Close contact with a COVID-19 positive Pt in past 14-21 Days: No - Vaccine Status Have you recieved a Covid-19 vaccination: No - Review of Systems Constitutional: No Symptoms Eyes: No Symptoms Ears, Nose, & Throat: No Symptoms Respiratory: No Symptoms, No Stridor, No Wheezing Cardiac: Chest Pain Abdominal/Gastrointestinal: No Symptoms Genitourinary Symptoms: No Symptoms Musculoskeletal: No Symptoms Skin: No Symptoms Neurological: Dizziness, Headache Psychological: Anxiety Endocrine: No Symptoms Hematologic/Lymphatic: No Symptoms Immunological/Allergic: No Symptoms - Past Medical History Pertinent Past Medical History: Yes Neurological History: Migraines Cardiac History: Hypertension Endocrine Medical History: Diabetes Type I, Hypoglycemia GI Medical History: Crohns Disease Psycho-Social History: Anxiety Other Medical History: 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 htn with - Past Surgical History Past Surgical History: Yes Gastrointestinal: Hernia Repair Female Surgical History: Section - Social History Smoking Status: Never smoker Exposure to second hand smoke: No Drug Use: none Patient Lives Alone: No - Female History Hx Last Menstrual Period: currently Hx Now: No - Nursing Vital Signs Nursing Vital Signs: Initial Vital Signs Temperature 98.5 F 05/07/21 13:36 Pulse Rate 60 05/07/21 13:36 Respiratory Rate 20 05/07/21 13:36 Blood Pressure 155/106 05/07/21 13:36 O2 Sat by Pulse Oximetry 100 05/07/21 13:36 Pain Scale Pain Intensity 0 - Physical Exam General Appearance: no apparent distress, alert, anxiety Eye Exam: PERRL/EOMI, eyes nml inspection Ears, Nose, Throat Exam: normal ENT inspection, TMs normal, pharynx normal Neck Exam: normal inspection, non-tender, supple, full range of motion Respiratory Exam: normal breath sounds, lungs clear Cardiovascular Exam: regular rate/rhythm, normal heart sounds Gastrointestinal/Abdomen Exam: soft, normal bowel sounds, No tenderness Back Exam: normal inspection, normal range of motion Extremity Exam: normal inspection, normal range of motion, pelvis stable Neurologic Exam: alert, oriented x 3, cooperative, lace burn out tender II-XII nml as tested, nml cerebellar function, nml station & gait, sensation nml, No normal mood/affect (Anxious), No motor deficits, No sensory deficit Skin Exam: normal color SpO2 Interpretation: normal SpO2: 100 O2 Delivery: Room Air - Course EKG Interpreted by Me: RATE (55), Sinus Wilder, NORMAL AXIS, NORMAL INTERVALS, NORMAL QRS Ordered Tests: Active Orders 24 hr Category Date Time Status [place] STAT Care 05/07/21 13:55 Completed EKG-ER Only STAT Care 05/07/21 13:54 Completed IV Insertion STAT Care 05/07/21 13:54 Completed CHEST 1 VIEW (PORTABLE) Stat Exams 05/07/21 13:54 Taken CBC W DIFF Stat Lab 05/07/21 13:53 Completed CMP Stat Lab 05/07/21 13:53 Completed D-DIMER QUANTITATIVE Stat Lab 05/07/21 14:10 Completed HCG,QUALITATIVE URINE Stat Lab 05/07/21 14:00 Completed NT PRO BNP Stat Lab 05/07/21 13:53 Completed TROPONIN Q3H Lab 05/07/21 13:53 Completed TROPONIN Q3H Lab 05/07/21 17:00 Ordered TROPONIN Q3H Lab 05/07/21 20:00 Ordered TROPONIN Q3H Lab 05/07/21 23:00 Ordered Medication Summary Discontinued Medications Generic Name Dose Route Start Last Admin Trade Name Freq PRN Reason Stop Dose Admin Albuterol/Ipratropium 3 ml 05/07/21 13:55 05/07/21 15:38 Duoneb 0.5-3 Mg/3 Ml Neb IH 05/07/21 13:56 3 ml STAT ONE Administration Albuterol/Ipratropium Confirm 05/07/21 15:37 Duoneb 0.5-3 Mg/3 Ml Neb Administered 05/07/21 15:38 Dose 3 ml IH .STK-MED ONE Aspirin 324 mg 05/07/21 13:54 05/07/21 14:12 Baby Aspirin 81 Mg Chew PO 05/07/21 13:55 324 mg STAT ONE Administration Aspirin Confirm 05/07/21 14:11 Baby Aspirin 81 Mg Chew Administered 05/07/21 14:12 Dose 324 mg .ROUTE .STK-MED ONE Lab/Rad Data: Laboratory Result Diagrams 05/07/21 13:53 05/07/21 13:53 Laboratory Results 05/07/21 05/07/21 05/07/21 Range/Units 14:10 14:00 13:53 WBC (4.0-10.5) K/mm3 RBC (4.1-5.4) M/mm3 Hgb (12.0-16.0) gm/dl Hct (35-47) % MCV (78-100) fl MCH (26-32) pg MCHC (32-36) g/dl RDW (11.5-14.0) % Plt Count (150-450) K/mm3 MPV (7.5-11.0) fl Gran % (36.0-66.0) % Eos # (Auto) (0-0.5) Absolute Lymphs (auto) (1.0-4.6) Absolute Monos (auto) (0.0-1.3) Lymphocytes % (24.0-44.0) % Monocytes % (0.0-12.0) % Eosinophils % (0.00-5.0) % Basophils % (0.0-0.4) % Absolute Granulocytes (1.4-6.9) Basophils # (0-0.4) D-Dimer < 215 L (215-500) ng/mL Sodium (137-145) mmol/L Potassium (3.5-5.1) mmol/L Chloride (98-107) mmol/L Carbon Dioxide (22-30) mmol/L Anion Gap (5-15) MEQ/L BUN (7-17) mg/dL Creatinine (0.52-1.04) mg/dL Estimated GFR ML/MIN Glucose (74-106) mg/dL Calcium (8.4-10.2) mg/dL Total Bilirubin (0.2-1.3) mg/dL AST (14-36) U/L ALT (0-35) U/L Alkaline Phosphatase (38-126) U/L Troponin I < 0.012 (0.000-0.034) ng/mL NT-Pro-B Natriuret Pep (0-450) pg/mL Serum Total Protein (6.3-8.2) g/dL Albumin (3.5-5.0) g/dL Urine HCG, Qual NEGATIVE (Negative) 05/07/21 05/07/21 Range/Units 13:53 13:53 WBC 7.3 (4.0-10.5) K/mm3 RBC 4.70 (4.1-5.4) M/mm3 Hgb 13.6 (12.0-16.0) gm/dl Hct 41.8 (35-47) % MCV 88.9 (78-100) fl MCH 28.9 (26-32) pg MCHC 32.5 (32-36) g/dl RDW 12.8 (11.5-14.0) % Plt Count 367 (150-450) K/mm3 MPV 10.5 (7.5-11.0) fl Gran % 55.7 (36.0-66.0) % Eos # (Auto) 0.12 (0-0.5) Absolute Lymphs (auto) 2.48 (1.0-4.6) Absolute Monos (auto) 0.62 (0.0-1.3) Lymphocytes % 33.9 (24.0-44.0) % Monocytes % 8.5 (0.0-12.0) % Eosinophils % 1.6 (0.00-5.0) % Basophils % 0.3 (0.0-0.4) % Absolute Granulocytes 4.07 (1.4-6.9) Basophils # 0.02 (0-0.4) D-Dimer (215-500) ng/mL Sodium 135 L (137-145) mmol/L Potassium 4.5 (3.5-5.1) mmol/L Chloride 98 (98-107) mmol/L Carbon Dioxide 25 (22-30) mmol/L Anion Gap 16.5 H (5-15) MEQ/L BUN 8 (7-17) mg/dL Creatinine 0.66 (0.52-1.04) mg/dL Estimated GFR > 60.0 ML/MIN Glucose 287 H (74-106) mg/dL Calcium 9.3 (8.4-10.2) mg/dL Total Bilirubin 0.40 (0.2-1.3) mg/dL AST 19 (14-36) U/L ALT 11 (0-35) U/L Alkaline Phosphatase 71 (38-126) U/L Troponin I (0.000-0.034) ng/mL NT-Pro-B Natriuret Pep 608 H (0-450) pg/mL Serum Total Protein 7.5 (6.3-8.2) g/dL Albumin 4.5 (3.5-5.0) g/dL Urine HCG, Qual (Negative) - Progress Progress: improved Air Movement: good Progress Note: 05/07/21 15:58 25 years old is evaluated for chest tightness, chest pain and headache in the presence of multiple medications started recently. Patient is very anxious. EKG showed sinus bradycardia at a rate of 55 with no acute ischemic changes. Negative initial troponin and D-dimers. Chest x-ray did not reveal any acute cardiomegaly or pulmonary findings reviewed by me, official report is pending. Patient is given DuoNeb, on reevaluation she is feeling better. She has a BNP of 608 which is a little higher than normal for her age. Patient though does have high blood pressure for 2 years after having gestational hypertension and has not followed up with anyone until few days ago and is started on metoprolol couple of days ago. 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 She does need follow-up with cardiology, I gave referral for Dr. Roman but sister wants her to go to [facility] services coordinator in [place]. I do not think she needs second troponin, low heart score, her symptoms are a combination of new medication start with some anxiety, recommended continue with meds and outpatient follow-up. Discussed signs symptoms of worsening needing return to ER which she seems understanding. Blood Culture(s) Obtained: No Antibiotics given: No Counseled pt/family regarding: lab results, diagnosis, need for follow-up, rad results - Departure Departure Disposition: Home Clinical Impression: Atypical chest pain, Anxiety Condition: Stable Critical Care Time: No Referrals: DOCTOR,NO FAMILY [Primary Care Provider] - ISRAEL DEGROOT [ACTIVE STAFF] - (Call in 2 days for reevaluation) Instructions: Angina (DC), Chest Pain (DC) Additional Instructions: Continue with your current medications. Follow-up with primary care for reeval uation. Also follow-up with cardiology and neurology for reevaluation. Return to ER for worsening chest pain pressure tightness or headache etc.
[2021-05-07] MEDS ORDERED: BABY ASPIRIN 81 MG CHEW ONE (14:11)
[2021-05-07 14:17] LABS: Absolute Neutrophil Ct (ANC) 4.07 (1.4-6.9); BASOPHIL % 0.3 % (0.0-0.4); Basophil (Absolute #) 0.02 (0-0.4); Eosinophil % 1.6 % (0.00-5.0); Eosinophil (Absolute #) 0.12 (0-0.5); Hematocrit 41.8 % (35-47); Hemoglobin 13.6 gm/dl (12.0-16.0); Lymphocyte (Absolute #) 2.48 (1.0-4.6); Lymphocytes % 33.9 % (24.0-44.0); Mean Cell Volume 88.9 fl (78-100); Mean Corpuscular Hemoglobin 28.9 pg (26-32); Mean Corpuscular Hgb Concent. 32.5 g/dl (32-36); Mean Platelet Volume 10.5 fl (7.5-11.0); Monocyte (Absolute #) 0.62 (0.0-1.3); Monocytes % 8.5 % (0.0-12.0); Neutrophil % 55.7 % (36.0-66.0); Platelet Count 367 K/mm3 (150-450); Red Cell Distribution Width 12.8 % (11.5-14.0); White Blood Count 7.3 K/mm3 (4.0-10.5)
[2021-05-07 14:38] LABS: ALBUMIN 4.5 g/dL (3.5-5.0); ALKALINE PHOSPHATASE 71 U/L (38-126); ANION GAP 16.5 MEQ/L (5-15); BLOOD UREA NITROGEN 8 mg/dL (7-17); CHLORIDE 98 mmol/L (98-107); Calcium 9.3 mg/dL (8.4-10.2); Carbon Dioxide 25 mmol/L (22-30); Creatinine 1 0.66 mg/dL (0.52-1.04); EST GLOMERULAR FILTRATION RATE > 60.0 ML/MIN; Glucose 287 mg/dL (74-106); NT PRO BNP 608 pg/mL (0-450); Potassium 4.5 mmol/L (3.5-5.1); SGOT/AST 19 U/L (14-36); SGPT/ALT 11 U/L (0-35); SODIUM 135 mmol/L (137-145); Total Protein 7.5 g/dL (6.3-8.2)
[2021-05-07 15:16] VITALS: PULSE 73
[2021-05-07 16:01] VITALS: O2SAT 100
[2021-05-07 16:14] VITALS: BP 137/92
--- NOTE | 2021-05-07 20:10 | XRAY ---
Indication: Chest pain. Comparison: None Portable chest demonstrates normal heart, lungs, and bony thorax.
== END 2021-05-07 16:14 | disposition home or self-care (01) ==
LOC: ED 13:33
DX: R07.89 Other chest pain (principal); F41.9 Anxiety disorder, unspecified; I10 Essential (primary) hypertension; E10.649 Type 1 diabetes mellitus with hypoglycemia without coma; K50.90 Crohn's disease, unspecified, without complications; Z79.899 Other long term (current) drug therapy
CPT/HCPCS: 36000; 36415; 71045; 80053; 83880; 84484; 84703; 85025; 85379; 93005; 93041; 94640; 99284; A9270-GY

== ENCOUNTER 2021-07-05 17:07 | Emergency (ER) | payer BC ==
[2021-07-05] MEDS ORDERED: Sodium Chloride 0.9% 1000 ML 1,000 ML ONE (17:50)
[2021-07-05] MEDS ORDERED: Sodium Chloride 0.9% 1000 ML 1,000 ML IV SCH (18:00)
--- NOTE | 2021-07-05 18:05 | ERPHSYRPT ---
- History of Present Illness Time Seen by Provider: 07/05/21 17:22 Source: patient Exam Limitations: no limitations Patient Subjective Stated Complaint: Numbness Triage Nursing Assessment: Patient ambulated back to ED and transferred self to bed. Patient A+O x3. Patient's skin flushed, warm and dry. Patient complains of numbness to right hand/wrist became numb around 1600 lasting 30 minutes patient then states she couldn't see out her right eye for 10 minutes and couldn't find the words she wanted to say for about 10 min, then she became fine. Patient denies pain or discomfort. Visual acuity change noted to right eye. Sensation different to right cheek than left cheek. Patient approximately 4 weeks . Physician History: Patient is a 25-year-old female G2, P1 presents to our ED for evaluation of numbness to right hand and transient loss of vision in her right eye. Patient states that approximately 4 PM her right hand and right wrist became numb. At the same time her right eye lost vision. The numbness at her right hand and wrist lasted for about 30 minutes. The vision loss in the right eye lasted for about 10 minutes. Patient had similar symptoms approximately 2 years ago during her last . Patient had a second episode last summer. Patient is currently asymptomatic. Patient is 5 weeks . Symptoms are mild to moderate in intensity. No specific worsening or improving factors. Patient is a type I diabetic. Patient says she is otherwise healthy. She voices no other complaints concerns at this time. Timing/Duration: today Severity: moderate Modifying Factors: Improves With: nothing Associated Symptoms: denies symptoms Allergies/Adverse Reactions: No Known Drug Allergies Allergy (Verified 07/05/21 17:14) Home Medications: Insulin Aspart [NovoLOG Insulin] 0 unit SQ ACHS 05/18/19 [History] Insulin Detemir [Levemir] 9 unit SQ HS 05/18/19 [History] Metoprolol Succinate 50 mg [Toprol Xl 50 MG] 100 mg PO DAILY 05/07/21 [History] Sertraline HCl 50 mg [Zoloft 50 mg Tablet] 50 mg PO DAILY 05/07/21 [History] Hx Tetanus, Diphtheria Vaccination/Date Given: Yes Hx Influenza Vaccination/Date Given: No Hx Pneumococcal Vaccination/Date Given: No Immunizations Up to Date: Yes Travel Risk - International Travel Have you traveled outside of the country in past 3 weeks: No - Coronavirus Screening Are you exhibiting any of the following symptoms?: No Close contact with a COVID-19 positive Pt in past 14-21 Days: No - Vaccine Status Have you recieved a Covid-19 vaccination: No - Review of Systems Constitutional: No Symptoms, No Fever, No Chills Eyes: No Symptoms Ears, Nose, & Throat: No Symptoms Respiratory: No Symptoms, No Cough, No Dyspnea Cardiac: No Symptoms, No Chest Pain, No Edema, No Syncope Abdominal/Gastrointestinal: No Symptoms, No Abdominal Pain, No Nausea, No Vomiting, No Diarrhea Genitourinary Symptoms: No Symptoms, No Dysuria Musculoskeletal: No Symptoms, No Back Pain, No Neck Pain Skin: No Symptoms, No Rash Neurological: No Symptoms, No Dizziness, No Focal Weakness, No Sensory Changes Psychological: No Symptoms Endocrine: No Symptoms Hematologic/Lymphatic: No Symptoms Immunological/Allergic: No Symptoms All Other Systems: Reviewed and Negative - Past Medical History Pertinent Past Medical History: Yes Neurological History: Migraines Cardiac History: Hypertension Endocrine Medical History: Diabetes Type I, Hypoglycemia GI Medical History: Crohns Disease Psycho-Social History: Anxiety Other Medical History: 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 htn with - Past Surgical History Past Surgical History: Yes Gastrointestinal: Hernia Repair Female Surgical History: Section - Social History Smoking Status: Never smoker Exposure to second hand smoke: No Drug Use: none Patient Lives Alone: No - Female History Hx Last Menstrual Period: 1 Hx Now: Yes - Nursing Vital Signs Nursing Vital Signs: Initial Vital Signs Temperature 99.5 F 07/05/21 17:18 Pulse Rate 98 H 07/05/21 17:18 Respiratory Rate 18 07/05/21 17:18 Blood Pressure 164/117 07/05/21 17:18 O2 Sat by Pulse Oximetry 97 07/05/21 17:18 Pain Scale Pain Intensity 0 - Physical Exam General Appearance: no apparent distress, alert Eye Exam: PERRL/EOMI, eyes nml inspection Ears, Nose, Throat Exam: normal ENT inspection, TMs normal, pharynx normal, moist mucous membranes Neck Exam: normal inspection, non-tender, supple, full range of motion Respiratory Exam: normal breath sounds, lungs clear, airway intact, No respiratory distress Cardiovascular Exam: regular rate/rhythm, normal heart sounds, normal peripheral pulses Gastrointestinal/Abdomen Exam: soft, normal bowel sounds, No tenderness, No d istention, No mass, No guarding Back Exam: normal inspection, normal range of motion, No CVA tenderness, No vertebral tenderness Extremity Exam: normal inspection, normal range of motion, pelvis stable Neurologic Exam: alert, oriented x 3, cooperative, normal mood/affect, nml cerebellar function, nml station & gait, sensation nml, No motor deficits Skin Exam: normal color, warm, dry, No rash Lymphatic Exam: No adenopathy SpO2 Interpretation: normal SpO2: 99 O2 Delivery: Room Air - Course Nursing assessment & vital signs reviewed: Yes Ordered Tests: Active Orders 24 hr Category Date Time Status Packing Line Operator STAT Care 07/05/21 17:47 Active EKG-ER Only STAT Care 07/05/21 17:46 Active IV Insertion STAT Care 07/05/21 17:46 Active Pulse Oximetry (ED) STAT Care 07/05/21 17:46 Active Tele-Health Consult ROUTINE Cons 07/05/21 18:18 Active CBC W DIFF Stat Lab 07/05/21 18:00 Completed CMP Stat Lab 07/05/21 18:00 Completed CULTURE,URINE Stat Lab 07/05/21 17:54 Received HCG, Quantitative (Inhouse) Stat Lab 07/05/21 18:35 Completed HCG,QUALITATIVE URINE Stat Lab 07/05/21 17:54 Completed TROPONIN Q3H Lab 07/05/21 18:00 Completed TROPONIN Q3H Lab 07/05/21 21:00 Ordered TROPONIN Q3H Lab 07/06/21 00:00 Ordered TROPONIN Q3H Lab 07/06/21 03:00 Ordered TROPONIN Q3H Lab 07/06/21 06:00 Ordered UA W/RFX UR CULTURE Stat Lab 07/05/21 17:54 Completed Medication Summary Generic Name Dose Route Start Last Admin Trade Name Freq PRN Reason Stop Dose Admin Sodium Chloride 1,000 mls @ 100 mls/hr 07/05/21 18:00 07/05/21 17:52 Sodium Chloride 0.9% 1000 Ml IV 08/04/21 17:59 100 mls/hr .Q10H DIAMOND Administration Lab/Rad Data: Laboratory Result Diagrams 07/05/21 18:00 07/05/21 18:00 Laboratory Results 07/05/21 07/05/21 07/05/21 Range/Units 18:35 18:00 18:00 WBC (4.0-10.5) K/mm3 RBC (4.1-5.4) M/mm3 Hgb (12.0-16.0) gm/dl Hct (35-47) % MCV (78-100) fl MCH (26-32) pg MCHC (32-36) g/dl RDW (11.5-14.0) % Plt Count (150-450) K/mm3 MPV (7.5-11.0) fl Gran % (36.0-66.0) % Eos # (Auto) (0-0.5) Absolute Lymphs (auto) (1.0-4.6) Absolute Monos (auto) (0.0-1.3) Lymphocytes % (24.0-44.0) % Monocytes % (0.0-12.0) % Eosinophils % (0.00-5.0) % Basophils % (0.0-0.4) % Absolute Granulocytes (1.4-6.9) Basophils # (0-0.4) Sodium 134 L (137-145) mmol/L Potassium 4.2 (3.5-5.1) mmol/L Chloride 99 (98-107) mmol/L Carbon Dioxide 23 (22-30) mmol/L Anion Gap 16.0 H (5-15) MEQ/L BUN 11 (7-17) mg/dL Creatinine 0.59 (0.52-1.04) mg/dL Estimated GFR > 60.0 ML/MIN Glucose 142 H (74-106) mg/dL Calcium 8.8 (8.4-10.2) mg/dL Total Bilirubin 0.20 (0.2-1.3) mg/dL AST 15 (14-36) U/L ALT 9 (0-35) U/L Alkaline Phosphatase 73 (38-126) U/L Troponin I < 0.012 (0.000-0.034) ng/mL Serum Total Protein 7.2 (6.3-8.2) g/dL Albumin 4.2 (3.5-5.0) g/dL Beta HCG, Quant 1306.7 mIU/ml Urine Color (YELLOW) Urine Appearance (CLEAR) Urine pH (5-6) Ur Specific Lutts (1.005-1.025) Urine Protein (Negative) Urine Ketones (NEGATIVE) Urine Blood (0-5) Abdulaziz/ul Urine Nitrite (NEGATIVE) Urine Bilirubin (NEGATIVE) Urine Urobilinogen (0-1) mg/dL Ur Leukocyte Esterase (NEGATIVE) Urine WBC (Auto) (0-5) /HPF Urine RBC (Auto) (0-2) /HPF U Epithel Cells (Auto) (FEW) /HPF Urine Bacteria (Auto) (NEGATIVE) /HPF Urine Culture Reflexed (NO) Urine Glucose (NEGATIVE) mg/dL Urine HCG, Qual (Negative) 07/05/21 07/05/21 07/05/21 Range/Units 18:00 17:54 17:54 WBC 10.8 H (4.0-10.5) K/mm3 RBC 4.14 (4.1-5.4) M/mm3 Hgb 12.3 (12.0-16.0) gm/dl Hct 37.6 (35-47) % MCV 90.8 (78-100) fl MCH 29.7 (26-32) pg MCHC 32.7 (32-36) g/dl RDW 12.9 (11.5-14.0) % Plt Count 357 (150-450) K/mm3 MPV 10.6 (7.5-11.0) fl Gran % 62.0 (36.0-66.0) % Eos # (Auto) 0.10 (0-0.5) Absolute Lymphs (auto) 3.18 (1.0-4.6) Absolute Monos (auto) 0.79 (0.0-1.3) Lymphocytes % 29.5 (24.0-44.0) % Monocytes % 7.3 (0.0-12.0) % Eosinophils % 0.9 (0.00-5.0) % Basophils % 0.3 (0.0-0.4) % Absolute Granulocytes 6.69 (1.4-6.9) Basophils # 0.03 (0-0.4) Sodium (137-145) mmol/L Potassium (3.5-5.1) mmol/L Chloride (98-107) mmol/L Carbon Dioxide (22-30) mmol/L Anion Gap (5-15) MEQ/L BUN (7-17) mg/dL Creatinine (0.52-1.04) mg/dL Estimated GFR ML/MIN Glucose (74-106) mg/dL Calcium (8.4-10.2) mg/dL Total Bilirubin (0.2-1.3) mg/dL AST (14-36) U/L ALT (0-35) U/L Alkaline Phosphatase (38-126) U/L Troponin I (0.000-0.034) ng/mL Serum Total Protein (6.3-8.2) g/dL Albumin (3.5-5.0) g/dL Beta HCG, Quant mIU/ml Urine Color YELLOW (YELLOW) Urine Appearance SLIGHTLY CLOUDY (CLEAR) Urine pH 6.0 (5-6) Ur Specific Lutts 1.011 (1.005-1.025) Urine Protein NEGATIVE (Negative) Urine Ketones NEGATIVE (NEGATIVE) Urine Blood SMALL (0-5) Abdulaziz/ul Urine Nitrite NEGATIVE (NEGATIVE) Urine Bilirubin NEGATIVE (NEGATIVE) Urine Urobilinogen NEGATIVE (0-1) mg/dL Ur Leukocyte Esterase MODERATE (NEGATIVE) Urine WBC (Auto) >100 (0-5) /HPF Urine RBC (Auto) 3-5 (0-2) /HPF U Epithel Cells (Auto) RARE (FEW) /HPF Urine Bacteria (Auto) FEW (NEGATIVE) /HPF Urine Culture Reflexed YES (NO) Urine Glucose NEGATIVE (NEGATIVE) mg/dL Urine HCG, Qual POSITIVE (Negative) - Progress Progress: improved Progress Note: Work-up reveals a urinary tract infection. 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 No neuro imaging indicated per n eurologist. Patient is currently asymptomatic and requesting discharge. Will discharge home at this time. She agrees to follow-up with primary care doctor within 48 hours for reevaluation. Portions of this note were created with voice recognition technology. There may be grammatical, spelling, punctuation or sound alike errors 07/05/21 19:45 Patient does not have a primary care doctor to follow-up with. Patient referred to our on-call doctor, Dr. Simmons 07/05/21 19:47 Patient declined obtaining a antibiotic pill from our ED. Patient ready to be discharged. A prescription for Macrobid was forwarded to patient's pharmacy. Repeat neuro exam within normal limits at time of discharge. 07/05/21 19:48 Counseled pt/family regarding: lab results, diagnosis, need for follow-up - Departure Departure Disposition: Home Clinical Impression: UTI (urinary tract infection), Hemiplegic migraine Condition: Stable Critical Care Time: No Referrals: DOCTOR,NO FAMILY [Primary Care Provider] - TIERRA SIMMONS MD [ACTIVE STAFF] - Instructions: Migraines (DC) Prescriptions: Nitrofurantoin Macro 100 mg [Macrobid 100MG Capsule] 100 mg PO BID 7 Days #14 cap
[2021-07-05 18:07] LABS: Absolute Neutrophil Ct (ANC) 6.69 (1.4-6.9); BASOPHIL % 0.3 % (0.0-0.4); Basophil (Absolute #) 0.03 (0-0.4); Eosinophil % 0.9 % (0.00-5.0); Hematocrit 37.6 % (35-47); Hemoglobin 12.3 gm/dl (12.0-16.0); Lymphocyte (Absolute #) 3.18 (1.0-4.6); Lymphocytes % 29.5 % (24.0-44.0); Mean Cell Volume 90.8 fl (78-100); Mean Corpuscular Hemoglobin 29.7 pg (26-32); Mean Corpuscular Hgb Concent. 32.7 g/dl (32-36); Mean Platelet Volume 10.6 fl (7.5-11.0); Monocyte (Absolute #) 0.79 (0.0-1.3); Monocytes % 7.3 % (0.0-12.0); Platelet Count 357 K/mm3 (150-450); Red Blood Count 4.14 M/mm3 (4.1-5.4); Red Cell Distribution Width 12.9 % (11.5-14.0); White Blood Count 10.8 K/mm3 (4.0-10.5)
[2021-07-05 18:13] LABS: Appearance SLIGHTLY CLOUDY (CLEAR); Bacteria FEW /HPF (NEGATIVE); Bilirubin NEGATIVE (NEGATIVE); Blood SMALL Ery/ul (0-5); Epithelial Cells RARE /HPF (FEW); Glucose NEGATIVE (NEGATIVE); Ketones NEGATIVE (NEGATIVE); Leukocyte Esterase MODERATE (NEGATIVE); Nitrite NEGATIVE (NEGATIVE); Protein,Urine Dip NEGATIVE (Negative); Specific Gravity 1.011 (1.005-1.025); Urobilinogen NEGATIVE mg/dL (0-1); WBC >100 /HPF (0-5)
[2021-07-05 18:23] LABS: ALBUMIN 4.2 g/dL (3.5-5.0); ALKALINE PHOSPHATASE 73 U/L (38-126); BLOOD UREA NITROGEN 11 mg/dL (7-17); CHLORIDE 99 mmol/L (98-107); Calcium 8.8 mg/dL (8.4-10.2); Carbon Dioxide 23 mmol/L (22-30); Creatinine 1 0.59 mg/dL (0.52-1.04); EST GLOMERULAR FILTRATION RATE > 60.0 ML/MIN; Glucose 142 mg/dL (74-106); Potassium 4.2 mmol/L (3.5-5.1); SGOT/AST 15 U/L (14-36); SGPT/ALT 9 U/L (0-35); SODIUM 134 mmol/L (137-145); Total Protein 7.2 g/dL (6.3-8.2)
[2021-07-05 18:32] VITALS: BP 151/98
[2021-07-05 19:04] VITALS: PULSE 92; O2SAT 99
== END 2021-07-05 19:51 | disposition home or self-care (01) ==
LOC: ED 17:07
DX: N39.0 Urinary tract infection, site not specified (principal); G43.409 Hemiplegic migraine, not intractable, without status migrainosus; I10 Essential (primary) hypertension
CPT/HCPCS: 36000; 36415; 80053; 81001; 84484; 84702; 84703; 85025; 87077; 87086; 87186; 93005; 93041; 94760; 99284; Q3014

== ENCOUNTER 2023-12-25 14:46 | Emergency (ER) | payer OTHER ==
[2023-12-25 15:04] LABS: Absolute Neutrophil Ct (ANC) 4.85 x10^3/uL (1.4-6.9); BASOPHIL % 0.4 % (0.0-0.4); Basophil (Absolute #) 0.03 x10^3/uL (0-0.4); Eosinophil % 0.7 % (0.00-5.0); Eosinophil (Absolute #) 0.06 x10^3/uL (0-0.5); Hematocrit 41.7 % (35-47); Hemoglobin 14.6 g/dL (12.0-16.0); IMMATURE GRAN # 0.02 x10^3u/L (0.00-0.03); IMMATURE GRAN % 0.2 % (0.00-0.4); Lymphocyte (Absolute #) 2.57 x10^3/uL (1.0-4.6); Lymphocytes % 31.8 % (24.0-44.0); Mean Cell Volume 86.5 fL (78-100); Mean Corpuscular Hemoglobin 30.3 pg (26-32); Mean Platelet Volume 10.5 fL (7.5-11.0); Monocyte (Absolute #) 0.56 x10^3/uL (0.0-1.3); Monocytes % 6.9 % (0.0-12.0); Platelet Count 291 x10^3/uL (150-450); Red Blood Count 4.82 x10^6/uL (4.1-5.4); Red Cell Distribution Width 12.3 % (11.5-14.0); White Blood Count 8.1 x10^3/uL (4.0-10.5)
[2023-12-25 15:07] VITALS: TEMP 97
[2023-12-25 15:17] LABS: ALBUMIN 4.5 g/dL (3.5-5.0); BILIRUBIN,TOTAL 0.4 mg/dL (0.2-1.3); Calcium 9.5 mg/dL (8.4-10.2); Creatinine 1 0.61 mg/dL (0.52-1.04); Potassium 3.9 mmol/L (3.5-5.1)
[2023-12-25 15:29] LABS: NT PRO BNPII < 20.0 pg/mL (<300); TROPONIN < 0.012 ng/mL (0.000-0.034)
[2023-12-25 16:42] LABS: HCG SERUM TEST NEGATIVE (NEGATIVE)
--- NOTE | 2023-12-25 16:54 | ERPHSYRPT ---
- History of Present Illness Time Seen by Provider: 12/25/23 15:10 Historian: patient Exam Limitations: no limitations Patient Subjective Stated Complaint: pt was sent here for clinic for chest pain and possible abnormal ekg, she states she started having pain to left arm and shoulder since sunday, pain does come and go, no radiation, no other symptoms. no injury noted, Triage Nursing Assessment: pt alert, walked in, resp easy, skin w/d/p. no cough, no edema, pain not repredroducable by pain. no jvd Physician History: 28-year-old female history of diabetes presents to our ED as a referral from outpatient clinic for evaluation of left shoulder and arm pain. Patient has been experiencing left shoulder and arm pain for approximately 1 week. In light of patient's history and EKG was completed. No ischemic changes EKG revealed nonspecific T wave abnormalities. The clinician became concerned and sent patient to our ED. Patient states she has been having left's sided chest pain for approximately 1 week. Pain is localized no radiation no associated nausea or vomiting. Patient otherwise asymptomatic. She voices no other complaints or concerns at this time. Portions of this note were created with voice recognition technology. There may be grammatical, spelling, punctuation or sound alike errors Timing/Duration: week(s) (1 week) Activities at Onset: none Quality: aching Location: other (Left chest) Chest Pain Radiation: no radiation Severity of Pain-Max: moderate Severity of Pain-Current: mild Modifying Factors: Improves With: nothing Associated Symptoms: denies symptoms Prior Chest Pain/Cardiac Workup: no prior chest pain Nitro Today/Relief: no nitro taken today Aspirin Treatment Today: no aspirin today Allergies/Adverse Reactions: No Known Drug Allergies Allergy (Verified 12/25/23 14:49) Home Medications: Insulin Aspart [NovoLOG Insulin] 0 unit SQ ACHS 05/18/19 [History] Buspirone HCl 5 mg [Buspar 5 mg] 10 mg PO DAILY 12/25/23 [History] Insulin Glargine [Lantus Insulin] 10 unit SQ DAILY 12/25/23 [History] Lisinopril 10 mg [Zestril 10 MG] 10 mg PO DAILY 12/25/23 [History] Hx Tetanus, Diphtheria Vaccination/Date Given: Yes Hx Influenza Vaccination/Date Given: Yes Hx Pneumococcal Vaccination/Date Given: No Immunizations Up to Date: Yes Travel Risk - International Travel Have you traveled outside of the country in past 3 weeks: No - Emerging Infectious Disease Are you exhibiting symptoms associated with any current EIDs: No - Review of Systems Constitutional: No Symptoms, No Fever, No Chills Eyes: No Symptoms Ears, Nose, & Throat: No Symptoms Respiratory: No Symptoms, No Cough, No Dyspnea Cardiac: No Symptoms, No Chest Pain, No Edema, No Syncope Abdominal/Gastrointestinal: No Symptoms, No Abdominal Pain, No Nausea, No Vomiti ng, No Diarrhea Genitourinary Symptoms: No Symptoms, No Dysuria Musculoskeletal: No Symptoms, No Back Pain, No Neck Pain Skin: No Symptoms, No Rash Neurological: No Symptoms, No Dizziness, No Focal Weakness, No Sensory Changes Psychological: No Symptoms Endocrine: No Symptoms Hematologic/Lymphatic: No Symptoms Immunological/Allergic: No Symptoms All Other Systems: Reviewed and Negative - Past Medical History Pertinent Past Medical History: Yes Neurological History: Migraines Cardiac History: Hypertension Endocrine Medical History: Diabetes Type I, Hypoglycemia GI Medical History: Crohns Disease Psycho-Social History: Anxiety Other Medical History: 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 htn with - Past Surgical History Past Surgical History: Yes Gastrointestinal: Hernia Repair Female Surgical History: Section - Female History Hx Last Menstrual Period: unsure Hx Now: No - Social History Smoking Status: Never smoker Exposure to second hand smoke: No Drug Use: none Patient Lives Alone: No - Nursing Vital Signs Nursing Vital Signs: Initial Vital Signs Pulse Rate 103 H 12/25/23 15:00 Respiratory Rate 16 12/25/23 15:00 Blood Pressure 152/109 12/25/23 15:00 O2 Sat by Pulse Oximetry 98 12/25/23 15:00 Pain Scale Pain Intensity 5 - Physical Exam General Appearance: no apparent distress, alert Eye Exam: PERRL/EOMI, eyes nml inspection Ears, Nose, Throat Exam: normal ENT inspection, moist mucous membranes Neck Exam: normal inspection, non-tender, supple, full range of motion Respiratory Exam: normal breath sounds, lungs clear, airway intact, No respiratory distress Cardiovascular Exam: regular rate/rhythm, normal heart sounds, normal peripheral pulses Gastrointestinal/Abdomen Exam: soft, No tenderness, No mass Back Exam: normal inspection, No CVA tenderness, No vertebral tenderness Extremity Exam: normal inspection, normal range of motion Neurologic Exam: alert, oriented x 3, cooperative, normal mood/affect, sensation nml, No motor deficits Skin Exam: normal color, warm, dry Lymphatic Exam: No adenopathy SpO2 Interpretation: normal SpO2: 100 O2 Delivery: Room Air - Course Nursing assessment & vital signs reviewed: Yes EKG Interpreted by Me: RATE (105), Sinus Tach, NORMAL AXIS, NORMAL INTERVALS Ordered Tests: Active Orders 24 hr Category Date Time Status Diesel Motor Mechanic STAT Care 12/25/23 14:49 Active EKG-ER Only STAT Care 12/25/23 14:49 Active IV Insertion STAT Care 12/25/23 14:49 Active Pulse Oximetry (ED) STAT Care 12/25/23 14:49 Active CHEST 1 VIEW (PORTABLE) Stat Exams 12/25/23 16:35 Completed CBC W DIFF Stat Lab 12/25/23 15:00 Completed CMP Stat Lab 12/25/23 15:00 Completed D-DIMER QUANTITATIVE Stat Lab 12/25/23 15:00 Completed HCG QUALITATIVE, SERUM Stat Lab 12/25/23 Completed NT PRO BNPII Stat Lab 12/25/23 15:00 Completed TROPONIN Q4H Lab 12/25/23 15:00 Completed TROPONIN Q4H Lab 12/25/23 18:58 Completed TROPONIN Q4H Lab 12/25/23 23:00 Ordered UA W/RFX UR CULTURE Stat Lab 12/25/23 17:02 Completed Medication Summary Generic Name Dose Route Start Last Admin Trade Name Freq PRN Reason Stop Dose Admin Sodium Chloride 1,000 mls @ 999 mls/hr 12/25/23 18:51 12/25/23 18:55 Sodium Chloride 0.9% 1000 Ml IV 12/25/23 19:51 999 mls/hr .Q1H1M STA Administration Discontinued Medications Generic Name Dose Route Start Last Admin Trade Name Freq PRN Reason Stop Dose Admin Sodium Chloride Confirm 12/25/23 18:51 Sodium Chloride 0.9% 1000 Ml Administered 12/25/23 18:52 Dose 1,000 mls @ ud .ROUTE .STK-MED ONE Lab/Rad Data: Laboratory Result Diagrams 12/25/23 15:00 12/25/23 15:00 Laboratory Results 12/25/23 12/25/23 12/25/23 Range/Units Unknown 18:58 17:02 WBC (4.0-10.5) x10^3/uL RBC (4.1-5.4) x10^6/uL Hgb (12.0-16.0) g/dL Hct (35-47) % MCV (78-100) fL MCH (26-32) pg MCHC (32-36) g/dL RDW (11.5-14.0) % Plt Count (150-450) x10^3/uL MPV (7.5-11.0) fL Gran % (36.0-66.0) % Immature Gran % (Auto) (0.00-0.4) % Nucleat RBC Rel Count (0.00-0.1) % Eos # (Auto) (0-0.5) x10^3/uL Immature Gran # (Auto) (0.00-0.03) x10^3u/L Absolute Lymphs (auto) (1.0-4.6) x10^3/uL Absolute Monos (auto) (0.0-1.3) x10^3/uL Absolute Nucleated RBC (0.00-0.01) x10^3u/L Lymphocytes % (24.0-44.0) % Monocytes % (0.0-12.0) % Eosinophils % (0.00-5.0) % Basophils % (0.0-0.4) % Absolute Granulocytes (1.4-6.9) x10^3/uL Basophils # (0-0.4) x10^3/uL D-Dimer (0.0-0.50) mg/L Sodium (135-145) mmol/L Potassium (3.5-5.1) mmol/L Chloride (98-107) mmol/L Carbon Dioxide (22-30) mmol/L Anion Gap (5-15) MEQ/L BUN (7-17) mg/dL Creatinine (0.52-1.04) mg/dL Estimated GFR ML/MIN Glucose (74-106) mg/dL Calcium (8.4-10.2) mg/dL Total Bilirubin (0.2-1.3) mg/dL AST (14-36) U/L ALT (0-35) U/L Alkaline Phosphatase (38-126) U/L Troponin I < 0.012 (0.000-0.034) ng/mL NT-Pro-B Natriuret Pep (<300) pg/mL Serum Total Protein (6.3-8.2) g/dL Albumin (3.5-5.0) g/dL Serum HCG, Qual NEGATIVE (NEGATIVE) Urine Color Yellow (Yellow) Urine Appearance Clear (Clear) Urine pH 6.5 (4.6-8.0) Ur Specific [place] >=1.030 A (1.005-1.030) Urine Protein Negative (Negative) Urine Glucose (UA) >=1000 A (Negative) mg/dL Urine Ketones Trace A (Negative) Urine Blood Negative (Negative) Urine Nitrite Negative (Negative) Urine Bilirubin Negative (Negative) Urine Urobilinogen 0.2 (0.2) mg/dL Ur Leukocyte Esterase Negative (Negative) U Hyaline Cast (Auto) NONE SEEN (0-2) /LPF Urine Microscopic RBC 0-2 (0-5) /HPF Urine Microscopic WBC 0-2 (0-5) /HPF Ur Epithelial Cells Rare (None Seen) /HPF Urine Bacteria Rare A (None Seen) /HPF Urine Culture Reflexed NO (NO) 12/25/23 12/25/23 12/25/23 Range/Units 15:00 15:00 15:00 WBC (4.0-10.5) x10^3/uL RBC (4.1-5.4) x10^6/uL Hgb (12.0-16.0) g/dL Hct (35-47) % MCV (78-100) fL MCH (26-32) pg MCHC (32-36) g/dL RDW (11.5-14.0) % Plt Count (150-450) x10^3/uL MPV (7.5-11.0) fL Gran % (36.0-66.0) % Immature Gran % (Auto) (0.00-0.4) % Nucleat RBC Rel Count (0.00-0.1) % Eos # (Auto) (0-0.5) x10^3/uL Immature Gran # (Auto) (0.00-0.03) x10^3u/L Absolute Lymphs (auto) (1.0-4.6) x10^3/uL Absolute Monos (auto) (0.0-1.3) x10^3/uL Absolute Nucleated RBC (0.00-0.01) x10^3u/L Lymphocytes % (24.0-44.0) % Monocytes % (0.0-12.0) % Eosinophils % (0.00-5.0) % Basophils % (0.0-0.4) % Absolute Granulocytes (1.4-6.9) x10^3/uL Basophils # (0-0.4) x10^3/uL D-Dimer < 0.19 (0.0-0.50) mg/L Sodium 137 (135-145) mmol/L Potassium 3.9 (3.5-5.1) mmol/L Chloride 101 (98-107) mmol/L Carbon Dioxide 24 (22-30) mmol/L Anion Gap 15.0 (5-15) MEQ/L BUN 9 (7-17) mg/dL Creatinine 0.61 (0.52-1.04) mg/dL Estimated GFR 124.0 ML/MIN Glucose 297 H (74-106) mg/dL Calcium 9.5 (8.4-10.2) mg/dL Total Bilirubin 0.40 (0.2-1.3) mg/dL AST 16 (14-36) U/L ALT 13 (0-35) U/L Alkaline Phosphatase 76 (38-126) U/L Troponin I < 0.012 (0.000-0.034) ng/mL NT-Pro-B Natriuret Pep < 20.0 (<300) pg/mL Serum Total Protein 8.0 (6.3-8.2) g/dL Albumin 4.5 (3.5-5.0) g/dL Serum HCG, Qual (NEGATIVE) Urine Color (Yellow) Urine Appearance (Clear) Urine pH (4.6-8.0) Ur Specific [place] (1.005-1.030) Urine Protein (Negative) Urine Glucose (UA) (Negative) mg/dL Urine Ketones (Negative) Urine Blood (Negative) Urine Nitrite (Negative) Urine Bilirubin (Negative) Urine Urobilinogen (0.2) mg/dL Ur Leukocyte Esterase (Negative) U Hyaline Cast (Auto) (0-2) /LPF Urine Microscopic RBC (0-5) /HPF Urine Microscopic WBC (0-5) /HPF Ur Epithelial Cells (None Seen) /HPF Urine Bacteria (None Seen) /HPF Urine Culture Reflexed (NO) 12/25/23 Range/Units 15:00 WBC 8.1 (4.0-10.5) x10^3/uL RBC 4.82 (4.1-5.4) x10^6/uL Hgb 14.6 (12.0-16.0) g/dL Hct 41.7 (35-47) % MCV 86.5 (78-100) fL MCH 30.3 (26-32) pg MCHC 35.0 (32-36) g/dL RDW 12.3 (11.5-14.0) % Plt Count 291 (150-450) x10^3/uL MPV 10.5 (7.5-11.0) fL Gran % 60.0 (36.0-66.0) % Immature Gran % (Auto) 0.2 (0.00-0.4) % Nucleat RBC Rel Count 0.0 (0.00-0.1) % Eos # (Auto) 0.06 (0-0.5) x10^3/uL Immature Gran # (Auto) 0.02 (0.00-0.03) x10^3u/L Absolute Lymphs (auto) 2.57 (1.0-4.6) x10^3/uL Absolute Monos (auto) 0.56 (0.0-1.3) x10^3/uL Absolute Nucleated RBC 0.00 (0.00-0.01) x10^3u/L Lymphocytes % 31.8 (24.0-44.0) % Monocytes % 6.9 (0.0-12.0) % Eosinophils % 0.7 (0.00-5.0) % Basophils % 0.4 (0.0-0.4) % Absolute Granulocytes 4.85 (1.4-6.9) x10^3/uL Basophils # 0.03 (0-0.4) x10^3/uL D-Dimer (0.0-0.50) mg/L Sodium (135-145) mmol/L Potassium (3.5-5.1) mmol/L Chloride (98-107) mmol/L Carbon Dioxide (22-30) mmol/L Anion Gap (5-15) MEQ/L BUN (7-17) mg/dL Creatinine (0.52-1.04) mg/dL Estimated GFR ML/MIN Glucose (74-106) mg/dL Calcium (8.4-10.2) mg/dL Total Bilirubin (0.2-1.3) mg/dL AST (14-36) U/L ALT (0-35) U/L Alkaline Phosphatase (38-126) U/L Troponin I (0.000-0.034) ng/mL NT-Pro-B Natriuret Pep (<300) pg/mL Serum Total Protein (6.3-8.2) g/dL Albumin (3.5-5.0) g/dL Serum HCG, Qual (NEGATIVE) Urine Color (Yellow) Urine Appearance (Clear) Urine pH (4.6-8.0) Ur Specific [place] (1.005-1.030) Urine Protein (Negative) Urine Glucose (UA) (Negative) mg/dL Urine Ketones (Negative) Urine Blood (Negative) Urine Nitrite (Negative) Urine Bilirubin (Negative) Urine Urobilinogen (0.2) mg/dL Ur Leukocyte Esterase (Negative) U Hyaline Cast (Auto) (0-2) /LPF Urine Microscopic RBC (0-5) /HPF Urine Microscopic WBC (0-5) /HPF Ur Epithelial Cells (None Seen) /HPF Urine Bacteria (None Seen) /HPF Urine Culture Reflexed (NO) - Progress Progress: improved Air Movement: good Progress Note: 12/25/23 19:48 Heart score is two 28-year-old female presents to our ED for evaluation of left- sided chest pain. Physical exam function unremarkable. Laboratory workup nonremarkable. D-dimer negative. Troponin negative x 2. EKG normal sinus rhythm. Patient is a diabetic with known risk factors. Patient's asymptomatic. No indication for further workup. Will discharge home. Patient agrees to follow-up with primary care doctor within 48 hours for evaluation for Portions of this note were created with voice recognition technology. There may be grammatical, spelling, punctuation or sound alike errors Complex problem addressed is moderate acute complicated No critical care time Complex of data reviewed and analyzed is moderate. Test ordered test reviewed results analyzed and correlated clinically with history and physical exam. Risk of complication and or risk of morbidity/mortality of patient management is low Vital stable. Time spent for discharge patient is approximately 20 minutes. Plan of care established for shared decision making. No social determinants of health present impede follow-up. Portions of this note were created with voice recognition technology. There may be grammatical, spelling, punctuation or sound alike errors Counseled pt/family regarding: lab results, diagnosis, need for follow-up, rad results - Departure Departure Disposition: Home Clinical Impression: Chest pain, Hyperglycemia, Glucosuria Condition: Stable Critical Care Time: No Referrals: BERTHA AHJI NP [Primary Care Provider] - Follow up/PCP as directed Additional Instructions: Discharge/Care Plan SUSAN WYMAN was seen on 12/25/23 in the Emergency Room. The patient was counseled regarding Diagnosis,Lab results, Imaging studies, need for follow up and when to return to the Emergency Room. Prescriptions given: Discharge Note I have spoken with the patient and/or caregivers. I have explained the patient's condition, diagnosis and treatment plan based on the information available to me at this time. I have answered the patient's and/or caregiver's questions and addressed any concerns. The patient and/or caregivers have as good understanding of the patient's diagnosis, condition and treatment plan as can be expected at this point. The vital signs have been stable. The patient's condition is stable and appropriate for discharge from the emergency department. The patient will pursue further outpatient evaluation with the primary care physician or other designated or consulting physician as outlined in the discharge instructions. The patient and/or caregivers are agreeable to this plan of care and follow-up instructions have been explained in detail. The patient and/or caregivers have received these instruction. The patient/and or caregivers are aware that any significant change in condition or worsening of symptoms should prompt an immediate return to this or the closest emergency department or call 911.
--- NOTE | 2023-12-25 17:04 | XRAY ---
Indication: Left chest pain. Comparison: May 07, 2021 Portable chest again demonstrates normal heart, lungs, and bony thorax.
[2023-12-25 17:16] LABS: Appearance Clear (Clear); Bacteria Rare /HPF (None Seen); Bilirubin Negative (Negative); Blood Negative (Negative); Epithelial Cells Rare /HPF (None Seen); Glucose, Urine >=1000 mg/dL (Negative); Hyaline Casts NONE SEEN /LPF (0-2); Ketones Trace (Negative); Leukocyte Esterase Negative (Negative); Nitrite Negative (Negative); Ph 6.5 (4.6-8.0); Protein,Urine Dip Negative (Negative); RBC 0-2 /HPF (0-5); Specific Gravity >=1.030 (1.005-1.030); Urobilinogen 0.2 mg/dL (0.2); WBC 0-2 /HPF (0-5)
[2023-12-25 17:25] LABS: ADD URINE CULTURE? NO (NO)
[2023-12-25] MEDS ORDERED: Sodium Chloride 0.9% 1000 ML 1,000 ML ONE (18:51)
[2023-12-25] MEDS: Sodium Chloride 0.9% 1000 ML 1,000 ML IV STA (18:55)
[2023-12-25 19:36] VITALS: BP 124/79; PULSE 88; RESP 17
[2023-12-25 19:47] VITALS: O2SAT 100
== END 2023-12-25 19:53 | disposition home or self-care (01) ==
LOC: ED 14:46
DX: R07.9 Chest pain, unspecified (principal); R81 Glycosuria; E10.65 Type 1 diabetes mellitus with hyperglycemia; M25.512 Pain in left shoulder; M79.602 Pain in left arm; I10 Essential (primary) hypertension; Z79.4 Long term (current) use of insulin; Z79.899 Other long term (current) drug therapy
CPT/HCPCS: 36000; 36415; 71045; 80053; 81001; 83880; 84484; 84703; 85025; 85379; 93005; 93041; 94760; 99284

== ENCOUNTER 2024-01-11 23:19 | Emergency (ER) | payer OTHER ==
--- NOTE | 2024-01-11 23:25 | ERPHSYRPT ---
- History of Present Illness Time Seen by Provider: 01/11/24 23:24 Historian: patient, family Exam Limitations: no limitations Physician History: This is a 28-year-old white female patient of nurse practitioner Lex who presents with right side chest pain that she describes as a sharp shooting pain at the right border of the sternum at the mid level of the sternum without radiation. Patient has a heart score of 2. Patient has a history of diabetes, hypertension, migraine headaches, anxiety issues and Crohn's disease. Patient states that today's chest pain is different than the chest pain from approximately 2-1/2 weeks ago where she had 2 normal troponin levels and 2 normal twelve-lead EKGs performed. Patient has no documented history of coronary artery disease. She had not seen a all terrain vehicle racer since the last visit here approximately 2 and half weeks ago. She has not had a cough and denies shortness of breath. Timing/Duration: today Activities at Onset: none Quality: sharpness, stabbing Location: substernal, central (Right of midline sternum) Chest Pain Radiation: no radiation Severity of Pain-Max: moderate Severity of Pain-Current: mild Associated Symptoms: denies symptoms Prior Chest Pain/Cardiac Workup: recently seen/treated Nitro Today/Relief: no nitro taken today Aspirin Treatment Today: 81 mg x 4, provided by ED Allergies/Adverse Reactions: No Known Drug Allergies Allergy (Verified 01/11/24 23:31) Home Medications: Insulin Aspart [NovoLOG Insulin] 0 unit SQ ACHS 05/18/19 [History] Buspirone HCl 5 mg [Buspar 5 mg] 10 mg PO DAILY 12/25/23 [History] Insulin Glargine [Lantus Insulin] 10 unit SQ HS 12/25/23 [History] Lisinopril 10 mg [Zestril 10 MG] 10 mg PO DAILY 12/25/23 [History] Hx Tetanus, Diphtheria Vaccination/Date Given: Yes Hx Influenza Vaccination/Date Given: Yes Hx Pneumococcal Vaccination/Date Given: No Travel Risk - International Travel Have you traveled outside of the country in past 3 weeks: No - Emerging Infectious Disease Are you exhibiting symptoms associated with any current EIDs: No - Review of Systems Constitutional: No Symptoms Eyes: No Symptoms Ears, Nose, & Throat: No Symptoms Respiratory: No Symptoms Cardiac: Chest Pain Abdominal/Gastrointestinal: No Symptoms Genitourinary Symptoms: No Symptoms Musculoskeletal: No Symptoms Skin: No Symptoms Neurological: No Symptoms Psychological: No Symptoms Endocrine: No Symptoms Hematologic/Lymphatic: No Symptoms Immunological/Allergic: No Symptoms All Other Systems: Reviewed and Negative - Past Medical History Pertinent Past Medical History: Yes Neurological History: Migraines Cardiac History: Hypertension Endocrine Medical History: Diabetes Type I, Hypoglycemia GI Medical History: Crohns Disease Psycho-Social History: Anxiety Other Medical History: 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 htn with - Past Surgical History Past Surgical History: Yes Gastrointestinal: Hernia Repair Female Surgical History: Section - Social History Smoking Status: Never smoker Exposure to second hand smoke: No Drug Use: none Patient Lives Alone: No - Nursing Vital Signs Nursing Vital Signs: Initial Vital Signs Temperature 98 F 01/11/24 23:20 Pulse Rate 106 H 01/11/24 23:20 Respiratory Rate 20 01/11/24 23:20 Blood Pressure 177/115 01/11/24 23:20 O2 Sat by Pulse Oximetry 98 01/11/24 23:20 Pain Scale Pain Intensity 7 - Physical Exam General Appearance: no apparent distress, alert, anxiety Eye Exam: PERRL/EOMI, eyes nml inspection Ears, Nose, Throat Exam: normal ENT inspection, moist mucous membranes Neck Exam: normal inspection, non-tender, supple, full range of motion Respiratory Exam: normal breath sounds, lungs clear, airway intact, No chest tenderness Cardiovascular Exam: regular rate/rhythm, normal heart sounds, normal peripheral pulses Gastrointestinal/Abdomen Exam: soft, normal bowel sounds, No tenderness Pelvic Exam: not done Rectal Exam: not done Back Exam: normal inspection, normal range of motion, No CVA tenderness, No vertebral tenderness Extremity Exam: normal inspection, normal range of motion, pelvis stable Neurologic Exam: alert, oriented x 3, cooperative, haircutter II-XII nml as tested, normal mood/affect, nml cerebellar function, nml station & gait, sensation nml Skin Exam: normal color, warm, dry Lymphatic Exam: No adenopathy SpO2 Interpretation: normal O2 Delivery: Room Air - Course Nursing assessment & vital signs reviewed: Yes EKG Interpreted by Me: RATE (96), Sinus Rhythm, NORMAL AXIS, NORMAL INTERVALS, NORMAL QRS, NORMAL ST-T, Other (No acute ischemic changes on today's twelve-lead EKG. There is no change when compared to the twelve-lead EKG dated 12/25/2023) Ordered Tests: Active Orders 24 hr Category Date Time Status Art Psychotherapist STAT Care 01/11/24 23:25 Active EKG-ER Only STAT Care 01/11/24 23:25 Active CHEST 1 VIEW (PORTABLE) Stat Exams 01/11/24 23:25 Taken CBC W DIFF Stat Lab 01/11/24 23:45 Completed CMP Stat Lab 01/11/24 23:45 Completed D-DIMER QUANTITATIVE Stat Lab 01/11/24 23:45 Completed MAGNESIUM Stat Lab 01/11/24 23:45 Completed NT PRO BNPII Stat Lab 01/11/24 23:45 Completed TROPONIN Q4H Lab 01/11/24 23:45 Completed TROPONIN Q4H Lab 01/12/24 03:30 Ordered TROPONIN Q4H Lab 01/12/24 07:30 Ordered Medication Summary Discontinued Medications Generic Name Dose Route Start Last Admin Trade Name Freq PRN Reason Stop Dose Admin Aspirin 324 mg 01/11/24 23:25 01/11/24 23:40 Aspirin 81 Mg Tab.Chew PO 01/11/24 23:26 324 mg STAT ONE Administration Aspirin Confirm 01/11/24 23:39 Aspirin 81 Mg Tab.Chew Administered 01/11/24 23:40 Dose 324 mg .ROUTE .STInsightly-MED ONE Lab/Rad Data: Laboratory Result Diagrams 01/11/24 23:45 01/11/24 23:45 Laboratory Results 01/11/24 01/11/24 01/11/24 Range/Units 23:45 23:45 23:45 WBC (4.0-10.5) x10^3/uL RBC (4.1-5.4) x10^6/uL Hgb (12.0-16.0) g/dL Hct (35-47) % MCV (78-100) fL MCH (26-32) pg MCHC (32-36) g/dL RDW (11.5-14.0) % Plt Count (150-450) x10^3/uL MPV (7.5-11.0) fL Gran % (36.0-66.0) % Immature Gran % (Auto) (0.00-0.4) % Nucleat RBC Rel Count (0.00-0.1) % Eos # (Auto) (0-0.5) x10^3/uL Immature Gran # (Auto) (0.00-0.03) x10^3u/L Absolute Lymphs (auto) (1.0-4.6) x10^3/uL Absolute Monos (auto) (0.0-1.3) x10^3/uL Absolute Nucleated RBC (0.00-0.01) x10^3u/L Lymphocytes % (24.0-44.0) % Monocytes % (0.0-12.0) % Eosinophils % (0.00-5.0) % Basophils % (0.0-0.4) % Absolute Granulocytes (1.4-6.9) x10^3/uL Basophils # (0-0.4) x10^3/uL D-Dimer < 0.19 (0.0-0.50) mg/L Sodium 139 (135-145) mmol/L Potassium 3.7 (3.5-5.1) mmol/L Chloride 104 (98-107) mmol/L Carbon Dioxide 26 (22-30) mmol/L Anion Gap 11.9 (5-15) MEQ/L BUN 12 (7-17) mg/dL Creatinine 0.61 (0.52-1.04) mg/dL Estimated GFR 124.0 ML/MIN Glucose 127 H (74-106) mg/dL Calcium 10.0 (8.4-10.2) mg/dL Magnesium 1.6 (1.6-2.3) mg/dL Total Bilirubin 0.90 (0.2-1.3) mg/dL AST 18 (14-36) U/L ALT 11 (0-35) U/L Alkaline Phosphatase 68 (38-126) U/L Troponin I < 0.012 (0.000-0.033) ng/mL NT-Pro-B Natriuret Pep < 20.0 (<300) pg/mL Serum Total Protein 7.6 (6.3-8.2) g/dL Albumin 4.4 (3.5-5.0) g/dL 01/11/24 Range/Units 23:45 WBC 9.6 (4.0-10.5) x10^3/uL RBC 4.82 (4.1-5.4) x10^6/uL Hgb 14.6 (12.0-16.0) g/dL Hct 42.2 (35-47) % MCV 87.6 (78-100) fL MCH 30.3 (26-32) pg MCHC 34.6 (32-36) g/dL RDW 12.2 (11.5-14.0) % Plt Count 320 (150-450) x10^3/uL MPV 10.2 (7.5-11.0) fL Gran % 48.7 (36.0-66.0) % Immature Gran % (Auto) 0.2 (0.00-0.4) % Nucleat RBC Rel Count 0.0 (0.00-0.1) % Eos # (Auto) 0.15 (0-0.5) x10^3/uL Immature Gran # (Auto) 0.02 (0.00-0.03) x10^3u/L Absolute Lymphs (auto) 3.79 (1.0-4.6) x10^3/uL Absolute Monos (auto) 0.90 (0.0-1.3) x10^3/uL Absolute Nucleated RBC 0.00 (0.00-0.01) x10^3u/L Lymphocytes % 39.6 (24.0-44.0) % Monocytes % 9.4 (0.0-12.0) % Eosinophils % 1.6 (0.00-5.0) % Basophils % 0.5 (0.0-0.4) % Absolute Granulocytes 4.67 (1.4-6.9) x10^3/uL Basophils # 0.05 (0-0.4) x10^3/uL D-Dimer (0.0-0.50) mg/L Sodium (135-145) mmol/L Potassium (3.5-5.1) mmol/L Chloride (98-107) mmol/L Carbon Dioxide (22-30) mmol/L Anion Gap (5-15) MEQ/L BUN (7-17) mg/dL Creatinine (0.52-1.04) mg/dL Estimated GFR ML/MIN Glucose (74-106) mg/dL Calcium (8.4-10.2) mg/dL Magnesium (1.6-2.3) mg/dL Total Bilirubin (0.2-1.3) mg/dL AST (14-36) U/L ALT (0-35) U/L Alkaline Phosphatase (38-126) U/L Troponin I (0.000-0.033) ng/mL NT-Pro-B Natriuret Pep (<300) pg/mL Serum Total Protein (6.3-8.2) g/dL Albumin (3.5-5.0) g/dL - Progress Progress: improved, re-examined Air Movement: good Progress Note: 01/12/24 00:05 My medical decision making and the assignment of moderate complexity to this patient's medical issue today is based on review of the patient's past medical history, review the patient's medication list, history present illness and physical findings on examination. The workup in this patient includes twelve- lead EKG, intravenous line placement, 4 baby aspirin, CBC, CMP, BNP, magnesium level, CBC, CMP, D-dimer level and troponin level. Differential diagnosis includes anxiety about health, electrolyte abnormalities, dysrhythmias, myocardial infarction, pulmonary embolus. 01/12/24 00:16 Thus far, my interpretation of the patient's laboratory data results show no acute or emergent medical issue. We are awaiting the troponin level. I interpreted the patient's chest x-ray. There is no evidence of any acute cardiopulmonary process. 01/12/24 00:18 If this patient's troponin level is normal, the patient will have had 3 normal troponin levels, 3 normal twelve-lead EKGs, 2 normal chest x-rays and 2 workups through the emergency department within the last 2-1/2 weeks that show normal electrolytes. This patient has nonspecific chest pain. Her heart score is 2. We will be discharging her to home if her troponin level is normal. Blood Culture(s) Obtained: No Antibiotics given: No Counseled pt/family regarding: lab results, diagnosis, need for follow-up Medical Desision Making - Independent Historian Additional History obtained from: Mother - Diagnostic Testing Diagnostic test were ordered, analyzed, and reviewed by me: Yes Radiological Interpretation: Reviewed by me, Teleradiologist Report - Risk of complications Minimal Risk: Minimal risk of morbidity - Departure Departure Disposition: Home Clinical Impression: Nonspecific chest pain Condition: Stable Critical Care Time: No Referrals: BERTHA HAJI NP [Primary Care Provider] - Follow up/PCP as directed Additional Instructions: Take your medication as prescribed. If there are no contraindications use Tylenol and ibuprofen for pain control. Call your primary care provider on 01/14/2024 to make arrangements for follow-up appointment for further evaluation management in the next 3 to 5 days.
[2024-01-11 23:31] VITALS: TEMP 98
[2024-01-11] MEDS ORDERED: BABY ASPIRIN 81 MG CHEW ONE (23:39)
[2024-01-11] MEDS: BABY ASPIRIN 81 MG CHEW PO ONE (23:40)
[2024-01-11 23:48] LABS: Absolute Neutrophil Ct (ANC) 4.67 x10^3/uL (1.4-6.9); BASOPHIL % 0.5 % (0.0-0.4); Basophil (Absolute #) 0.05 x10^3/uL (0-0.4); Eosinophil % 1.6 % (0.00-5.0); Eosinophil (Absolute #) 0.15 x10^3/uL (0-0.5); Hematocrit 42.2 % (35-47); Hemoglobin 14.6 g/dL (12.0-16.0); IMMATURE GRAN # 0.02 x10^3u/L (0.00-0.03); IMMATURE GRAN % 0.2 % (0.00-0.4); Lymphocyte (Absolute #) 3.79 x10^3/uL (1.0-4.6); Lymphocytes % 39.6 % (24.0-44.0); Mean Cell Volume 87.6 fL (78-100); Mean Corpuscular Hemoglobin 30.3 pg (26-32); Mean Corpuscular Hgb Concent. 34.6 g/dL (32-36); Mean Platelet Volume 10.2 fL (7.5-11.0); Monocytes % 9.4 % (0.0-12.0); Neutrophil % 48.7 % (36.0-66.0); Platelet Count 320 x10^3/uL (150-450); Red Blood Count 4.82 x10^6/uL (4.1-5.4); Red Cell Distribution Width 12.2 % (11.5-14.0); White Blood Count 9.6 x10^3/uL (4.0-10.5)
[2024-01-12 00:11] LABS: ALBUMIN 4.4 g/dL (3.5-5.0); ALKALINE PHOSPHATASE 68 U/L (38-126); ANION GAP 11.9 MEQ/L (5-15); BLOOD UREA NITROGEN 12 mg/dL (7-17); CHLORIDE 104 mmol/L (98-107); Carbon Dioxide 26 mmol/L (22-30); Creatinine 1 0.61 mg/dL (0.52-1.04); Glucose 127 mg/dL (74-106); MAGNESIUM 1.6 mg/dL (1.6-2.3); NT PRO BNPII < 20.0 pg/mL (<300); Potassium 3.7 mmol/L (3.5-5.1); SGOT/AST 18 U/L (14-36); SGPT/ALT 11 U/L (0-35); SODIUM 139 mmol/L (135-145); Total Protein 7.6 g/dL (6.3-8.2)
[2024-01-12 00:36] VITALS: BP 134/91; PULSE 104; RESP 17; O2SAT 97
--- NOTE | 2024-01-12 07:54 | XRAY ---
Indication: Chest pain. Comparison: December 25, 2023 Portable chest again demonstrates normal heart, lungs, and bony thorax with a few incidental tiny calcified granulomas.
== END 2024-01-12 00:48 | disposition home or self-care (01) ==
LOC: ED 23:19
DX: R07.9 Chest pain, unspecified (principal); I10 Essential (primary) hypertension; E11.9 Type 2 diabetes mellitus without complications
CPT/HCPCS: 36000; 36415; 71045; 80053; 83735; 83880; 84484; 85025; 85379; 93005; 93041; 99284; A9270-GY

== ENCOUNTER 2024-10-12 17:18 | Emergency (ER) | payer OTHER ==
--- NOTE | 2024-10-12 17:32 | ERPHSYRPT ---
- History of Present Illness Time Seen by Provider: 10/12/24 17:32 Source: patient, family Exam Limitations: no limitations Physician History: Pt had onset of intermittent CP radiating to left jaw and arm past week with nausea. No CP at this time or SObreath but has left jaw and arm pain still. Is IDDM and family Hx CAD, and Hptn treated. Nonsmoker No hx DVT or PE or hormone Tx or recent hosp or surg. SYmptoms highly suspicious and risk factors 3 or greater for 2 pts each with normal ekg and trop. Heart score 4 so borderline. Family here as independent source for Hx. Discussed with pt and available family risks and benefits of testing/Tx including CBC, CMP, EKG, Trop, BNP, D-dimer, UA, Amylase, Lipase , CXR, ondansitron, NTG, and they wish to proceed so these are ordered. Results discussed with pt and available family. Timing/Duration: day(s) Severity: moderate Modifying Factors: Improves With: nothing Associated Symptoms: nausea, heartburn Allergies/Adverse Reactions: No Known Drug Allergies Allergy (Verified 10/12/24 17:24) Home Medications: Insulin Aspart [NovoLOG Insulin] 0 unit SQ ACHS 05/18/19 [History] Insulin Glargine [Lantus Insulin] 10 unit SQ HS 12/25/23 [History] Lisinopril 10 mg [Zestril 10 MG] 10 mg PO DAILY 12/25/23 [History] Hx Tetanus, Diphtheria Vaccination/Date Given: Yes Hx Influenza Vaccination/Date Given: Yes Hx Pneumococcal Vaccination/Date Given: No Travel Risk - Emerging Infectious Disease Are you exhibiting symptoms associated with any current EIDs: No - Review of Systems Constitutional: No Fever, No Chills Eyes: No Symptoms Ears, Nose, & Throat: No Symptoms Respiratory: No Cough, No Dyspnea Cardiac: Chest Pain, No Edema, No Syncope Abdominal/Gastrointestinal: Nausea, No Abdominal Pain, No Vomiting, No Diarrhea Genitourinary Symptoms: No Dysuria Musculoskeletal: No Back Pain, No Neck Pain Skin: No Rash Neurological: No Dizziness, No Focal Weakness, No Sensory Changes Psychological: No Symptoms Endocrine: No Symptoms Hematologic/Lymphatic: No Symptoms Immunological/Allergic: No Symptoms All Other Systems: Reviewed and Negative - Past Medical History Pertinent Past Medical History: Yes Neurological History: Migraines Cardiac History: Hypertension Endocrine Medical History: Diabetes Type I, Hypoglycemia GI Medical History: Crohns Disease Psycho-Social History: Anxiety Other Medical History: 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 htn with - Past Surgical History Past Surgical History: Yes Gastrointestinal: Hernia Repair Female Surgical History: Section - Social History Smoking Status: Never smoker Exposure to second hand smoke: No Drug Use: none Patient Lives Alone: No - Social Determinants of Health Will the patient participate in the screening: Yes Do you worry about a steady place to live?: No In the past 12 months,have you had to go without utilities?: No Transportation Issues: No Has anyone in your support network made you feel unsafe?: No Have you or anyone in your house had to go without enough: No - Nursing Vital Signs Nursing Vital Signs: Initial Vital Signs Pulse Rate 109 H 10/12/24 17:30 Respiratory Rate 20 10/12/24 17:30 Blood Pressure 155/99 10/12/24 17:30 O2 Sat by Pulse Oximetry 98 10/12/24 17:30 Pain Scale Pain Intensity 5 - Physical Exam General Appearance: no apparent distress, alert Eye Exam: PERRL/EOMI, eyes nml inspection Ears, Nose, Throat Exam: normal ENT inspection, TMs normal, pharynx normal, moist mucous membranes Neck Exam: normal inspection, non-tender, supple, full range of motion Respiratory Exam: normal breath sounds, lungs clear, No respiratory distress Cardiovascular Exam: regular rate/rhythm, normal heart sounds, normal peripheral pulses Gastrointestinal/Abdomen Exam: soft, normal bowel sounds, No tenderness, No mass Pelvic Exam: deferred Rectal Exam: deferred Back Exam: normal inspection, normal range of motion, No CVA tenderness, No vertebral tenderness Extremity Exam: normal inspection, normal range of motion, pelvis stable Neurologic Exam: alert, oriented x 3, cooperative, normal mood/affect, nml cerebellar function, nml station & gait, sensation nml, No motor deficits Skin Exam: normal color, warm, dry, No rash Lymphatic Exam: No adenopathy SpO2 Interpretation: normal SpO2: 98 O2 Delivery: Room Air - Course Nursing assessment & vital signs reviewed: Yes EKG Interpreted by Me: Sinus Rhythm, NORMAL AXIS, NORMAL INTERVALS, NORMAL QRS, NORMAL ST-T - Radiology Exams Chest X-ray Interpretation: Interpreted by me, No Pneumothorax, No Infiltrates Ordered Tests: Active Orders 24 hr Category Date Time Status EKG-ER Only STAT Care 10/12/24 17:50 Active IV Insertion STAT Care 10/12/24 17:50 Active Pulse Oximetry (ED) STAT Care 10/12/24 17:50 Active CHEST 1 VIEW (PORTABLE) Stat Exams 10/12/24 18:06 Completed AMYLASE Stat Lab 10/12/24 18:13 Completed CBC W DIFF Stat Lab 10/12/24 18:13 Completed CMP Stat Lab 10/12/24 18:13 Completed D-DIMER QUANTITATIVE Stat Lab 10/12/24 18:13 Completed LIPASE Stat Lab 10/12/24 18:13 Completed Lactic Acid Stat Lab 10/12/24 18:48 Completed Lactic Acid Stat Lab 10/12/24 20:41 Completed Lactic Acid Stat Lab 10/12/24 20:59 Received NT PRO BNPII Stat Lab 10/12/24 18:13 Completed TROPONIN Q4H Lab 10/12/24 18:13 Completed TROPONIN Q4H Lab 10/12/24 21:03 Completed TROPONIN Q4H Lab 10/13/24 02:00 Ordered UA W/RFX UR CULTURE Stat Lab 10/12/24 19:26 Completed Medication Summary Generic Name Dose Route Start Last Admin Trade Name Freq PRN Reason Stop Dose Admin Sodium Chloride 1,000 mls @ 999 mls/hr 10/12/24 19:15 10/12/24 19:17 Sodium Chloride 0.9% 1000 Ml IV 11/11/24 19:14 999 mls/hr .Q1H1M DIAMOND Administration Discontinued Medications Generic Name Dose Route Start Last Admin Trade Name Freq PRN Reason Stop Dose Admin Aspirin 324 mg 10/12/24 17:50 10/12/24 18:28 Aspirin 81 Mg Tab.Chew PO 10/12/24 17:51 324 mg STAT ONE Administration Aspirin Confirm 10/12/24 18:25 Aspirin 81 Mg Tab.Chew Administered 10/12/24 18:26 Dose 324 mg .ROUTE .STK-MED ONE Nitroglycerin 0.4 mg 10/12/24 17:50 10/12/24 18:29 Nitroglycerin 0.4 Mg (Ed) 0.4 Mg Tab.Subl SL 10/12/24 17:51 0.4 mg STAT ONE Administration Nitroglycerin Confirm 10/12/24 18:26 Nitroglycerin 0.4 Mg (Ed) 0.4 Mg Tab.Subl Administered 10/12/24 18:27 Dose 0.4 mg SL .STK-MED ONE Ondansetron HCl 4 mg 10/12/24 17:50 10/12/24 18:29 Zofran 4 Mg/Udtablet Orally Disintegrating PO 10/12/24 17:51 4 mg STAT ONE Administration Ondansetron HCl Confirm 10/12/24 18:27 Zofran 4 Mg/Udtablet Orally Disintegrating Administered 10/12/24 18:28 Dose 4 mg .ROUTE .STK-MED ONE Lab/Rad Data: Laboratory Result Diagrams 10/12/24 18:13 10/12/24 18:13 Laboratory Results 10/12/24 10/12/24 10/12/24 Range/Units 21:03 20:41 19:26 WBC (3.98-10.04) x10^3/uL RBC (3.93-5.22) x10^6/uL Hgb (11.2-15.7) g/dL Hct (34.1-44.9) % MCV (79.4-94.8) fL MCH (25.6-32.2) pg MCHC (32.2-35.5) g/dL RDW (11.7-14.4) % Plt Count (182-369) x10^3/uL MPV (9.4-12.3) fL Gran % (34.0-71.1) % Immature Gran % (Auto) (0.001-0.429) % Nucleat RBC Rel Count (0.00-0.2) % Eos # (Auto) (0.04-0.36) x10^3/uL Immature Gran # (Auto) (0.001-0.031) x10^3u/L Absolute Lymphs (auto) (1.18-3.74) x10^3/uL Absolute Monos (auto) (0.24-0.86) x10^3/uL Absolute Nucleated RBC (0.00-0.012) x10^3u/L Lymphocytes % (19.3-51.7) % Monocytes % (4.7-12.5) % Eosinophils % (0.7-5.8) % Basophils % (0.1-1.2) % Absolute Granulocytes (1.56-6.13) x10^3/uL Basophils # (0.01-0.08) x10^3/uL D-Dimer (0.0-0.50) mg/L Sodium (135-145) mmol/L Potassium (3.5-5.1) mmol/L Chloride (98-107) mmol/L Carbon Dioxide (22-30) mmol/L Anion Gap (5-15) MEQ/L BUN (7-17) mg/dL Creatinine (0.52-1.04) mg/dL Estimated GFR ML/MIN Glucose (74-106) mg/dL Lactic Acid 2.4 H (0.4-2.0) Calcium (8.4-10.2) mg/dL Total Bilirubin (0.2-1.3) mg/dL AST (14-36) U/L ALT (0-35) U/L Alkaline Phosphatase (38-126) U/L Troponin I < 0.012 (0.000-0.033) ng/mL NT-Pro-B Natriuret Pep (<300) pg/mL Serum Total Protein (6.3-8.2) g/dL Albumin (3.5-5.0) g/dL Amylase (30-110) U/L Lipase (23-300) U/L Urine Color Yellow (Yellow) Urine Appearance Clear (Clear) Urine pH 6.0 (4.6-8.0) Ur Specific [place] >=1.030 A (1.005-1.030) Urine Protein Negative (Negative) Urine Glucose (UA) >=1000 A (Negative) mg/dL Urine Ketones 80 A (Negative) Urine Blood Negative (Negative) Urine Nitrite Negative (Negative) Urine Bilirubin Negative (Negative) Urine Urobilinogen 0.2 (0.2) mg/dL Ur Leukocyte Esterase Negative (Negative) U Hyaline Cast (Auto) NONE SEEN (0-2) /LPF Urine Microscopic RBC 0-2 (0-5) /HPF Urine Microscopic WBC 0-2 (0-5) /HPF Ur Epithelial Cells None Seen (None Seen) /HPF Urine Bacteria None Seen (None Seen) /HPF Urine Culture Reflexed NO (NO) Influenza Type A Ag (NEGATIVE) Influenza Type B Ag (NEGATIVE) RSV (PCR) (NEGATIVE) SARS-CoV-2 (PCR) (NEGATIVE) Group A Strep Antibody (NEGATIVE) 10/12/24 10/12/24 10/12/24 Range/Units 18:48 18:13 18:13 WBC (3.98-10.04) x10^3/uL RBC (3.93-5.22) x10^6/uL Hgb (11.2-15.7) g/dL Hct (34.1-44.9) % MCV (79.4-94.8) fL MCH (25.6-32.2) pg MCHC (32.2-35.5) g/dL RDW (11.7-14.4) % Plt Count (182-369) x10^3/uL MPV (9.4-12.3) fL Gran % (34.0-71.1) % Immature Gran % (Auto) (0.001-0.429) % Nucleat RBC Rel Count (0.00-0.2) % Eos # (Auto) (0.04-0.36) x10^3/uL Immature Gran # (Auto) (0.001-0.031) x10^3u/L Absolute Lymphs (auto) (1.18-3.74) x10^3/uL Absolute Monos (auto) (0.24-0.86) x10^3/uL Absolute Nucleated RBC (0.00-0.012) x10^3u/L Lymphocytes % (19.3-51.7) % Monocytes % (4.7-12.5) % Eosinophils % (0.7-5.8) % Basophils % (0.1-1.2) % Absolute Granulocytes (1.56-6.13) x10^3/uL Basophils # (0.01-0.08) x10^3/uL D-Dimer (0.0-0.50) mg/L Sodium (135-145) mmol/L Potassium (3.5-5.1) mmol/L Chloride (98-107) mmol/L Carbon Dioxide (22-30) mmol/L Anion Gap (5-15) MEQ/L BUN (7-17) mg/dL Creatinine (0.52-1.04) mg/dL Estimated GFR ML/MIN Glucose (74-106) mg/dL Lactic Acid 3.1 H (0.4-2.0) Calcium (8.4-10.2) mg/dL Total Bilirubin (0.2-1.3) mg/dL AST (14-36) U/L ALT (0-35) U/L Alkaline Phosphatase (38-126) U/L Troponin I < 0.012 (0.000-0.033) ng/mL NT-Pro-B Natriuret Pep 36.5 (<300) pg/mL Serum Total Protein (6.3-8.2) g/dL Albumin (3.5-5.0) g/dL Amylase (30-110) U/L Lipase (23-300) U/L Urine Color (Yellow) Urine Appearance (Clear) Urine pH (4.6-8.0) Ur Specific [place] (1.005-1.030) Urine Protein (Negative) Urine Glucose (UA) (Negative) mg/dL Urine Ketones (Negative) Urine Blood (Negative) Urine Nitrite (Negative) Urine Bilirubin (Negative) Urine Urobilinogen (0.2) mg/dL Ur Leukocyte Esterase (Negative) U Hyaline Cast (Auto) (0-2) /LPF Urine Microscopic RBC (0-5) /HPF Urine Microscopic WBC (0-5) /HPF Ur Epithelial Cells (None Seen) /HPF Urine Bacteria (None Seen) /HPF Urine Culture Reflexed (NO) Influenza Type A Ag NEGATIVE (NEGATIVE) Influenza Type B Ag NEGATIVE (NEGATIVE) RSV (PCR) NEGATIVE (NEGATIVE) SARS-CoV-2 (PCR) NEGATIVE (NEGATIVE) Group A Strep Antibody NOT DETECTED (NEGATIVE) 10/12/24 10/12/24 10/12/24 Range/Units 18:13 18:13 18:13 WBC 8.2 (3.98-10.04) x10^3/uL RBC 4.85 (3.93-5.22) x10^6/uL Hgb 14.7 (11.2-15.7) g/dL Hct 42.4 (34.1-44.9) % MCV 87.4 (79.4-94.8) fL MCH 30.3 (25.6-32.2) pg MCHC 34.7 (32.2-35.5) g/dL RDW 11.9 (11.7-14.4) % Plt Count 338 (182-369) x10^3/uL MPV 10.2 (9.4-12.3) fL Gran % 64.7 (34.0-71.1) % Immature Gran % (Auto) 0.1 (0.001-0.429) % Nucleat RBC Rel Count 0.0 (0.00-0.2) % Eos # (Auto) 0.13 (0.04-0.36) x10^3/uL Immature Gran # (Auto) 0.01 (0.001-0.031) x10^3u/L Absolute Lymphs (auto) 2.26 (1.18-3.74) x10^3/uL Absolute Monos (auto) 0.47 (0.24-0.86) x10^3/uL Absolute Nucleated RBC 0.00 (0.00-0.012) x10^3u/L Lymphocytes % 27.4 (19.3-51.7) % Monocytes % 5.7 (4.7-12.5) % Eosinophils % 1.6 (0.7-5.8) % Basophils % 0.5 (0.1-1.2) % Absolute Granulocytes 5.33 (1.56-6.13) x10^3/uL Basophils # 0.04 (0.01-0.08) x10^3/uL D-Dimer < 0.19 (0.0-0.50) mg/L Sodium 134 L (135-145) mmol/L Potassium 4.3 (3.5-5.1) mmol/L Chloride 99 (98-107) mmol/L Carbon Dioxide 22 (22-30) mmol/L Anion Gap 17.5 H (5-15) MEQ/L BUN 8 (7-17) mg/dL Creatinine 0.53 (0.52-1.04) mg/dL Estimated GFR 127.5 ML/MIN Glucose 306 H (74-106) mg/dL Lactic Acid (0.4-2.0) Calcium 9.8 (8.4-10.2) mg/dL Total Bilirubin 0.80 (0.2-1.3) mg/dL AST 22 (14-36) U/L ALT 19 (0-35) U/L Alkaline Phosphatase 101 (38-126) U/L Troponin I (0.000-0.033) ng/mL NT-Pro-B Natriuret Pep (<300) pg/mL Serum Total Protein 8.2 (6.3-8.2) g/dL Albumin 5.0 (3.5-5.0) g/dL Amylase 39 (30-110) U/L Lipase 88 (23-300) U/L Urine Color (Yellow) Urine Appearance (Clear) Urine pH (4.6-8.0) Ur Specific [place] (1.005-1.030) Urine Protein (Negative) Urine Glucose (UA) (Negative) mg/dL Urine Ketones (Negative) Urine Blood (Negative) Urine Nitrite (Negative) Urine Bilirubin (Negative) Urine Urobilinogen (0.2) mg/dL Ur Leukocyte Esterase (Negative) U Hyaline Cast (Auto) (0-2) /LPF Urine Microscopic RBC (0-5) /HPF Urine Microscopic WBC (0-5) /HPF Ur Epithelial Cells (None Seen) /HPF Urine Bacteria (None Seen) /HPF Urine Culture Reflexed (NO) Influenza Type A Ag (NEGATIVE) Influenza Type B Ag (NEGATIVE) RSV (PCR) (NEGATIVE) SARS-CoV-2 (PCR) (NEGATIVE) Group A Strep Antibody (NEGATIVE) - Progress Progress: improved, re-examined Progress Note: 10/12/24 20:10 no effect from ntg x1. 10/12/24 20:[address] Leyva the hospitalist the possibility to consider obs. He points out that the symptoms have been over several days and generally we expect to see a trop change or ekg effect by then if an ACS is evolving. So he feels this is a lower risk and could be discharged to outpt f/u, but we might check another trop to verify still negative first. . I discussed with pt and family that although the ekg and trops are negative, there still could be a cardiac or other condition evolving undetected. They are comfortable with DC to outpt f/u rather than further w/u in ER , or hosp or transfer and have the capacity to make this choice. second tro is also negative. 10/12/24 21:38 Discussed with DrJane: Other (Dr. Leyva hospitalist) Will see patient in: other Counseled pt/family regarding: lab results, diagnosis, need for follow-up, rad results Medical Desision Making - Independent Historian Additional History obtained from: Family - Discussion of managment Reviewed:: Test results, Need for additional workup Agreed on:: Treatment plan, need for follow-up - Diagnostic Testing Diagnostic test were ordered, analyzed, and reviewed by me: Yes Radiological Interpretation: Interpreted by me - Risk of complications The pt has a mod risk of morbidity or mortality based on: Need for prescription drug management The pt has a high risk of morbidity or mortality based on: Decision regarding hospitilization or escalation of hosp level of care - Departure Departure Disposition: Home Clinical Impression: CHest pain with negative trops/EKG, diabetes with suboptimal control Condition: Good Critical Care Time: No Referrals: BERTHA HAJI NP [Primary Care Provider] - Follow up/PCP as directed Instructions: Chest pain in adults - ED discharge instructions Additional Instructions: As we discussed , although the EKG and troponins have been normal, there still could be underlying cardiac or other conditions undetected so following up with your DrJane to complete the workup is advised. drink plenty of fluids and monitor your Diabetes control also to followup with your Dr. MURGUIA this week. Return meantime or to ER if more chest pain, shortness of breath, dizziness, vomiting, or an other symptoms of concern.
[2024-10-12 17:34] VITALS: TEMP 97.2
[2024-10-12 18:16] LABS: Absolute Neutrophil Ct (ANC) 5.33 x10^3/uL (1.56-6.13); BASOPHIL % 0.5 % (0.1-1.2); Basophil (Absolute #) 0.04 x10^3/uL (0.01-0.08); Eosinophil % 1.6 % (0.7-5.8); Eosinophil (Absolute #) 0.13 x10^3/uL (0.04-0.36); Hematocrit 42.4 % (34.1-44.9); Hemoglobin 14.7 g/dL (11.2-15.7); IMMATURE GRAN # 0.01 x10^3u/L (0.001-0.031); IMMATURE GRAN % 0.1 % (0.001-0.429); Lymphocyte (Absolute #) 2.26 x10^3/uL (1.18-3.74); Lymphocytes % 27.4 % (19.3-51.7); Mean Cell Volume 87.4 fL (79.4-94.8); Mean Corpuscular Hemoglobin 30.3 pg (25.6-32.2); Mean Corpuscular Hgb Concent. 34.7 g/dL (32.2-35.5); Mean Platelet Volume 10.2 fL (9.4-12.3); Monocyte (Absolute #) 0.47 x10^3/uL (0.24-0.86); Monocytes % 5.7 % (4.7-12.5); Neutrophil % 64.7 % (34.0-71.1); Platelet Count 338 x10^3/uL (182-369); Red Blood Count 4.85 x10^6/uL (3.93-5.22); Red Cell Distribution Width 11.9 % (11.7-14.4); White Blood Count 8.2 x10^3/uL (3.98-10.04)
[2024-10-12] MEDS ORDERED: BABY ASPIRIN 81 MG CHEW ONE (18:25)
[2024-10-12] MEDS ORDERED: Nitrostat 0.4 MG (ED) SL ONE (18:26)
--- NOTE | 2024-10-12 18:26 | XRAY ---
Indication: Chest pain. Comparison: January 11, 2024 Portable chest again demonstrates normal heart and lungs. Bony thorax intact. No new/acute findings.
[2024-10-12] MEDS ORDERED: ZOFRAN ODT 4 MG ONE (18:27)
[2024-10-12] MEDS: BABY ASPIRIN 81 MG CHEW PO ONE (18:28)
[2024-10-12 18:29] LABS: ANION GAP 17.5 MEQ/L (5-15); BILIRUBIN,TOTAL 0.8 mg/dL (0.2-1.3); Calcium 9.8 mg/dL (8.4-10.2); Creatinine 1 0.53 mg/dL (0.52-1.04); EST GLOMERULAR FILTRATION RATE 127.5 ML/MIN; Potassium 4.3 mmol/L (3.5-5.1); Total Protein 8.2 g/dL (6.3-8.2)
[2024-10-12] MEDS: ZOFRAN ODT 4 MG PO ONE (18:29)
[2024-10-12] MEDS: Nitrostat 0.4 MG (ED) SL ONE (18:29)
[2024-10-12 18:40] LABS: NT PRO BNPII 36.5 pg/mL (<300); TROPONIN < 0.012 ng/mL (0.000-0.033)
[2024-10-12 18:44] LABS: Group A Strep NOT DETECTED (NEGATIVE)
[2024-10-12 18:56] LABS: INFLUENZA A NEGATIVE (NEGATIVE); INFLUENZA B NEGATIVE (NEGATIVE); RESPIRATORY SYNCTIAL VIRUS NEGATIVE (NEGATIVE); SARS-CoV-2 Xpert Express NEGATIVE (NEGATIVE)
[2024-10-12] MEDS ORDERED: Sodium Chloride 0.9% 1000 ML 1,000 ML ONE (19:15)
[2024-10-12] MEDS: Sodium Chloride 0.9% 1000 ML 1,000 ML IV SCH (19:17)
[2024-10-12 19:34] LABS: Appearance Clear (Clear); Bacteria None Seen /HPF (None Seen); Bilirubin Negative (Negative); Blood Negative (Negative); Epithelial Cells None Seen /HPF (None Seen); Glucose, Urine >=1000 mg/dL (Negative); Hyaline Casts NONE SEEN /LPF (0-2); Ketones 80 (Negative); Leukocyte Esterase Negative (Negative); Nitrite Negative (Negative); Protein,Urine Dip Negative (Negative); RBC 0-2 /HPF (0-5); Specific Gravity >=1.030 (1.005-1.030); Urobilinogen 0.2 mg/dL (0.2); WBC 0-2 /HPF (0-5)
[2024-10-12 21:21] VITALS: PULSE 87; RESP 26
[2024-10-12 21:44] VITALS: O2SAT 98
[2024-10-12 21:59] VITALS: BP 124/80
== END 2024-10-12 21:59 | disposition home or self-care (01) ==
LOC: ED 17:18
DX: R07.9 Chest pain, unspecified (principal); E10.65 Type 1 diabetes mellitus with hyperglycemia; M79.602 Pain in left arm; I10 Essential (primary) hypertension; Z79.899 Other long term (current) drug therapy
CPT/HCPCS: 0241U; 36415; 71045; 80053; 81001; 82150; 83605; 83690; 83880; 84484; 85025; 85379; 87651; 93005; 94760; 99285; 99284; Q0162; A9270-GY